=== PATIENT | male | born 1960 | race Caucasian/White ===

== ENCOUNTER 2017-11-27 10:17 | Inpatient (IN) | payer SELFPAY ==
[~2017-11-27] VITALS: Ht 177.8 cm; Wt 106.0 kg
[2017-11-27 10:19] VITALS: BP 163/100; PULSE 89; RESP 16; TEMP 98.6; O2SAT 100
[2017-11-27] MEDS ORDERED: MICA80TA2 PO (13:34)
[2017-11-27 14:00] VITALS: BP 160/91; PULSE 86; RESP 17; O2SAT 98
[2017-11-27 14:06] LABS: AUTOMATED NEUTROPHIL # 5.5 TH/MM3 (1.8-7.7); BASOPHIL # 0.1 TH/MM3 (0-0.2); BASOPHIL % 0.9 % (0.0-2.0); EOSINOPHIL # 0.1 TH/MM3 (0-0.4); EOSINOPHIL % 1.4 % (0.0-4.0); HEMATOCRIT 37.3 % (39.0-51.0); HEMOGLOBIN 12.3 GM/DL (13.0-17.0); LYMPH % 25.2 % (9.0-44.0); LYMPHOCYTE # 2.2 TH/MM3 (1.0-4.8); MEAN CORPUSCULAR HEMOGLOBIN 28.6 PG (27.0-34.0); MEAN CORPUSCULAR HGB CONC 32.9 % (32.0-36.0); MEAN PLATELET VOLUME 8.9 FL (7.0-11.0); MONO % 9.5 % (0.0-8.0); MONOCYTE # 0.8 TH/MM3 (0-0.9); PLATELET COUNT 257 TH/MM3 (150-450); RED BLOOD COUNT 4.28 MIL/MM3 (4.50-5.90); RED CELL DISTRIBUTION WIDTH 18.7 % (11.6-17.2); WHITE BLOOD COUNT 8.8 TH/MM3 (4.0-11.0)
[2017-11-27 14:28] LABS: ALBUMIN 3.8 GM/DL (3.4-5.0); AST (GOT) 82 U/L (15-37); BICARBONATE 26.4 MEQ/L (21.0-32.0); BLOOD UREA NITROGEN 9 MG/DL (7-18); CALCIUM 8.7 MG/DL (8.5-10.1); CHLORIDE 102 MEQ/L (98-107); CREATININE 0.82 MG/DL (0.60-1.30); GLOMERULAR FILTRATION RATE 97 ML/MIN (>89); GLUCOSE,RANDOM 138 MG/DL (74-106); SODIUM (NA) 138 MEQ/L (136-145)
[2017-11-27 14:32] LABS: ALKALINE PHOSPHATASE 85 U/L (45-117); ALT (GPT) 93 U/L (12-78); TOTAL BILIRUBIN ADULT 0.6 MG/DL (0.2-1.0); TOTAL PROTEIN 8.3 GM/DL (6.4-8.2)
[2017-11-27] MEDS ORDERED: IOHEXOL 350 MG/ML 10 ML VIAL (for RAD DIAG) IVCONTRAST ONE (15:03)
--- NOTE | 2017-11-27 15:16 | RADRPT ---
EXAM DATE/TIME: 11/27/2017 14:46 [place] COMPARISON: No previous studies available for comparison. INDICATIONS : Abdomnal pain, with dark blood in stool. IV CONTRAST: 96 cc Omnipaque 350 (iohexol) IV ORAL CONTRAST: No oral contrast ingested. RADIATION DOSE: 8.41 CTDIvol (mGy) MEDICAL HISTORY : Carcinoma, colon. SURGICAL HISTORY : None. ENCOUNTER: Initial ACUITY: 4 - 6 months PAIN SCALE: 7/10 LOCATION: Bilateral lower quadrant TECHNIQUE: Volumetric scanning of the abdomen and pelvis was performed. Using automated exposure control and ad justment of the mA and/or kV according to patient size, radiation dose was kept as low as reasonably achievable to obtain optimal diagnostic quality images. DICOM format image data is available electro nically for review and comparison. FINDINGS: LOWER LUNGS: The visualized lower lungs are clear. LIVER: Patchy mild probable steatosis. No evidence of focal mass or biliary ductal dilatation. SPLEEN: Normal size without lesion. PANCREAS: Within normal limits. KIDNEYS: There is a small midpole posterior right renal cortical cyst. No suspicious renal mass. No stone or h ydronephrosis. ADRENAL GLANDS: Within normal limits. VASCULAR: There is no aortic aneurysm. BOWEL/MESENTERY: There is a rounded enhancing endoluminal process in the distal sigmoid/proximal rectum measuring clos e to 4 cm worrisome for a colonic polyp. There appears to be some degree of mild concentric wall thic kening in this region of the bowel. There are some regional diverticula also noted.. Direct inspectio n of this region would be recommended. There is slight induration in the adjacent paracolic fatty tis sues and a few tiny mesenteric lymph nodes visualized. The bowel is elsewhere focally unremarkable an d nondilated. ABDOMINAL WALL: Within normal limits. RETROPERITONEUM: Tiny retroperitoneal lymph nodes, nonpathologic by CT size criteria. BLADDER: No wall thickening or mass. REPRODUCTIVE: Within normal limits. INGUINAL: There is no lymphadenopathy or hernia. MUSCULOSKELETAL: Within normal limits for patient age. CONCLUSION: Appearance worrisome for endoluminal mass in the distal sigmoid/proximal rectum. Direct inspection of the colon would be suggested. Mild cirrhotic change and steatosis in the liver. Small right renal cysts. Filipe Guevara MD on November 27, 2017 at 15:06 Board Certified Radiologist. This report was verified electronically.
[2017-11-27] MEDS ORDERED: LORazepam 2 MG/ML VIAL IV PUSH PRN ×3 (15:45)
[2017-11-27] MEDS ORDERED: LORazepam 2 MG TAB PO PRN (15:45)
[2017-11-27] MEDS ORDERED: FLUMAZENIL 0.5 MG/5 ML VIAL IV PUSH PRN (15:45)
[2017-11-27] MEDS ORDERED: LORazepam 1 MG TAB PO PRN (15:45)
[2017-11-27] MEDS ORDERED: BISACODYL 10 MG SUPP RECTAL PRN (16:00)
[2017-11-27] MEDS ORDERED: NALOXONE HCL 0.4 MG/ML AMP IV PUSH PRN (16:00)
[2017-11-27] MEDS ORDERED: SODIUM CHLORIDE 0.9% FLUSH 10 ML FLUSH IV FLUSH PRN (16:00)
[2017-11-27] MEDS ORDERED: LACTULOSE SYRUP 20 GM/30 ML CUP PO PRN (16:00)
[2017-11-27] MEDS ORDERED: ONDANSETRON HCL 4 MG/2 ML VIAL IVP PRN (16:00)
[2017-11-27] MEDS ORDERED: SENNOSIDES 8.6 MG TAB PO PRN (16:00)
[2017-11-27] MEDS ORDERED: LACTATED RINGER'S 1000 ML INJ 1,000 ML IV SCH (16:00)
[2017-11-27] MEDS ORDERED: ACETAMINOPHEN 325 MG TAB PO PRN (16:00)
[2017-11-27] MEDS ORDERED: PEG (High)/E-LYTE SOLN 4000 ML BTL PO ONE (16:00)
[2017-11-27] MEDS: SODIUM CHLOR 0.9% 1000 ML INJ 1,000 ML IV SCH (16:31)
--- NOTE | 2017-11-27 16:34 | HHI.HP ---
HPI Service [facility] Primary Care Physician No Primary Care Physician Admission Diagnosis colon tumor Diagnoses: Chief Complaint: Sent by Doctor John Victor for Surgery Travel History International Travel<30 Days: No Contact w/Intl Traveler <30 Da: No Traveled to Known Affected Are: No History of Present Illness This is a pleasant 56 y/o Man with history of GI bleed found to have a rectal Cancer Stage III, recommended for surgery but as per patient he did not have the possibility to perform the surgery due to no Insurance, He knows the situation for one year but from July was recommended the procedure, today due to GI bleed and difficulty to eat consulted to Doctor Valente and was sent for procedure to this facility. was asked to ER physician to place the patient NPO, give GoLYTELY start IV fluids, laboratory reviewed and continue to follow, he states he is a heavy drinker of Beer and sometimes use Hard liquor, at this time stable, has rectal pain. 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-S1 herniation Past Surgical History Left Rotator cuff surgery Left knee surgery x 3 Cholecystectomy Reported Medications Reported Meds & Active Scripts Active Reported Micardis Hct (Telmisartan-Hydrochlorothiazide) 80-12.5 Mg Tab 1 Tab PO DAILY Allergies: Coded Allergies: No Known Allergies (Unverified , 11/27/17) Active Ordered Medications Current Medications Medications (Trade) Dose Ordered Sig/Sharon Route Start Time Stop Time Status Last Admin (Romazicon Inj) 0.2 mg Q1M PRN IV PUSH 11/27/17 15:45 (Ativan) 1 mg Q4H PRN PO 11/27/17 15:45 (Ativan Inj) 1 mg Q4H PRN IV PUSH 11/27/17 15:45 (Ativan) 2 mg Q2H PRN PO 11/27/17 15:45 (Ativan Inj) 2 mg Q2H PRN IV PUSH 11/27/17 15:45 (Ativan Inj) 2 mg Q1H PRN IV PUSH 11/27/17 15:45 (Ativan Inj) 2 mg Q15M PRN IV PUSH 11/27/17 15:45 Sodium Chloride 1,000 ml @ 100 mls/hr Q10H IV 11/27/17 16:00 (NS Flush) 2 ml UNSCH PRN IV FLUSH 11/27/17 16:00 (NS Flush) 2 ml BID IV FLUSH 11/27/17 21:00 (Tylenol) 650 mg Q4H PRN PO 11/27/17 16:00 (Zofran Inj) 4 mg Q6H PRN IVP 11/27/17 16:00 (Narcan Inj) 0.4 mg UNSCH PRN IV PUSH 11/27/17 16:00 (Senokot) 17.2 mg Q12H PRN PO 11/27/17 16:00 (Dulcolax Supp) 10 mg DAILY PRN RECTAL 11/27/17 16:00 (Lactulose Liq) 30 ml DAILY PRN PO 11/27/17 16:00 Family History Father at 52 years old of Cancer but he does not know which one Brother with Cancer he does not know which one. Social History Lives alone and drinks 8 to 10 beer daily also drinks hard liquor Physical Exam Vital Signs Vital Signs Date Time Temp Pulse Resp B/P (MAP) Pulse Ox O2 Delivery O2 Flow Rate FiO2 11/27/17 14:00 86 17 160/91 (114) 98 Room Air 11/27/17 10:19 98.6 89 16 163/100 (121) 100 Physical Exam GENERAL: This is a well-nourished, well-developed patient, in no apparent distress. SKIN: No rashes, ecchymoses or lesions. Cool and dry. HEAD: Atraumatic. Normocephalic. No temporal or scalp tenderness. EYES: Pupils equal round and reactive. Extraocular motions intact. No scleral icterus. No injection or drainage. ENT: Nose without bleeding, purulent drainage or septal hematoma. Throat without erythema, tonsillar hypertrophy or exudate. Uvula midline. Airway patent. NECK: Trachea midline. No JVD or lymphadenopathy. Supple, nontender, no meningeal signs. CARDIOVASCULAR: Regular rate and rhythm without murmurs, gallops, or rubs. RESPIRATORY: Clear to auscultation. Breath sounds equal bilaterally. No wheezes , rales, or rhonchi. GASTROINTESTINAL: Abdomen soft, generalized tenderness. MUSCULOSKELETAL: Extremities without clubbing, cyanosis, or edema. No joint tenderness, effusion, or edema noted. No calf tenderness. Negative Homans sign bilaterally. NEUROLOGICAL: Awake and alert. Cranial nerves II through XII intact. Laboratory Laboratory Tests Test 11/27/17 13:50 White Blood Count 8.8 Red Blood Count 4.28 Hemoglobin 12.3 Hematocrit 37.3 Mean Corpuscular Volume 87.0 Mean Corpuscular Hemoglobin 28.6 Mean Corpuscular Hemoglobin Concent 32.9 Red Cell Distribution Width 18.7 Platelet Count 257 Mean Platelet Volume 8.9 Neutrophils (%) (Auto) 63.0 Lymphocytes (%) (Auto) 25.2 Monocytes (%) (Auto) 9.5 Eosinophils (%) (Auto) 1.4 Basophils (%) (Auto) 0.9 Neutrophils # (Auto) 5.5 Lymphocytes # (Auto) 2.2 Monocytes # (Auto) 0.8 Eosinophils # (Auto) 0.1 Basophils # (Auto) 0.1 CBC Comment DIFF FINAL Differential Comment Blood Urea Nitrogen 9 Creatinine 0.82 Random Glucose 138 Total Protein 8.3 Albumin 3.8 Calcium Level 8.7 Alkaline Phosphatase 85 Aspartate Amino Transf (AST/SGOT) 82 Alanine Aminotransferase (ALT/SGPT) 93 Total Bilirubin 0.6 Sodium Level 138 Potassium Level 4.2 Chloride Level 102 Carbon Dioxide Level 26.4 Anion Gap 10 Estimat Glomerular Filtration Rate 97 Result Diagram: 11/27/17 1350 11/27/17 1350 Imaging Last Impressions Abdomen/Pelvis CT 11/27/17 0000 Signed Impressions: Service Date/Time: Monday, November 27, 2017 14:46 - CONCLUSION: Appearance worrisome for endoluminal mass in the distal sigmoid/proximal rectum. Direct inspection of the colon would be suggested. Mild cirrhotic change and steatosis in the liver. Small right renal cysts. MD Pb Faith VTE Risk Assessment Pb VTE Risk Assessment: Mod/High Risk (score >= 2) VTE Pharm Contraindication: Caprini Risk Assessment Model Point Value = 1 Point Value = 2 Point Value = 3 Point Value = 5 Age 41-60 Minor surgery BMI > 25 kg/m2 Swollen legs Varicose veins or History of unexplained or recurrent spontaneous Oral contraceptives or hormone replacement Sepsis (< 1 month) Serious lung disease, including pneumonia (< 1 month) Abnormal pulmonary function Acute myocardial infarction Congestive heart failure (< 1 month) History of inflammatory bowel disease Medical patient at bed rest Age 61-74 Arthroscopic surgery Major open surgery (> 45 min) Laparoscopic surgery (> 45 min) Malignancy Confined to bed (> 72 hours) Immobilizing plaster cast Central venous access Age >= 75 History of VTE Family history of VTE Factor V Leiden Prothrombin [id number] Lupus anticoagulant Anticardiolipin antibodies Elevated serum homocysteine Heparin-induced thrombocytopenia Other congenital or acquired thrombophilia Stroke (< 1 month) Elective arthroplasty Hip, pelvis, or leg fracture Acute spinal cord injury (< 1 month) Prophylaxis Regimen Total Risk Factor Score Risk Level Prophylaxis Regimen 0-1 Low Early ambulation 2 Moderate Order ONE of the following: *Sequential Compression Device (SCD) *Heparin 5000 units SQ BID 3-4 Higher Order ONE of the following medications: *Heparin 5000 units SQ TID *Enoxaparin/Lovenox 40 mg SQ daily (WT < 150 kg, CrCl > 30 mL/min) *Enoxaparin/Lovenox 30 mg SQ daily (WT < 150 kg, CrCl > 10-29 mL/min) *Enoxaparin/Lovenox 30 mg SQ BID (WT < 150 kg, CrCl > 30 mL/min) AND/OR *Sequential Compression Device (SCD) 5 or more Highest Order ONE of the following medications: *Heparin 5000 units SQ TID (Preferred with Epidurals) *Enoxaparin/Lovenox 40 mg SQ daily (WT < 150 kg, CrCl > 30 mL/min) *Enoxaparin/Lovenox 30 mg SQ daily (WT < 150 kg, CrCl > 10-29 mL/min) *Enoxaparin/Lovenox 30 mg SQ BID (WT < 150 kg, CrCl > 30 mL/min) AND *Sequential Compression Device (SCD) Assessment and Plan Assessment and Plan 1. Stage III rectal cancer for procedure tomorrow, scheduled for surgery tomorrow, Pain medicine. Julia 2. alcohol abuse on CIWA protocol. 3. Hypertension patient not taking medicines re started 4. medical non compliance. talent acquisition program manager follow electrolytes Code Status Full Code Discussed Condition With patient and ER physician Physician Certification 2 Midnight Certification Type: Admission for Inpatient Services Order for Inpatient Services The services are ordered in accordance with Medicare regulations or non- Medicare payer requirements, as applicable. In the case of services not specified as inpatient-only, they are appropriately provided as inpatient services in accordance with the 2-midnight benchmark. Estimated LOS (days): 3 days is the estimated time the patient will need to remain in the hospital, assuming treatment plan goals are met and no additional complications. Post-Hospital Plan: Not yet determined Chava Gonsales MD Nov 27, 2017 16:34
[2017-11-27 16:53] VITALS: BP 157/81; PULSE 87; RESP 18; TEMP 98.7; O2SAT 100
[2017-11-27] MEDS: THIAMINE INJ 100 MG in SODIUM CHLORIDE 0.9% INJ 100 ML IV SCH (17:59)
[2017-11-27] MEDS: MULTIVITAMIN INJ 10 ML, FOLIC ACID INJ 1 MG in SODIUM CHLORID 0.9% 500 ML INJ 500 ML IV SCH (17:59)
[2017-11-27 18:15] LABS: BILIRUBIN, URINE NEG (NEG); BLOOD, URINE NEG (NEG); GLUCOSE,URINE NEG (NEG); KETONE, URINE NEG (NEG); NITRITE,URINE NEG (NEG); PH, URINE 5.5 (5.0-8.5); URINE COLOR YELLOW (YELLW/STRAW); URINE LEUKOCYTE ESTERASE NEG (NEG)
--- NOTE | 2017-11-27 19:19 | PD ---
HPI Chief Complaint: GI Complaint Time Seen by Provider: 15:16 Travel History International Travel<30 days: No Contact w/Intl Traveler<30days: No Traveled to known affect area: No History of Present Illness HPI This is a 56 year old male who presents to the emergency department with several months of increasing lower abdominal pain, constant, moderate severity associated with bloody stools, with no nausea or vomiting. He was told at an outside hospital that he likely has colon cancer. He has been seeing Dr. Victor in clinic. He comes in today because over the past several days his pain has gotten much worse. Dr. Victor sent him to the emergency department for evaluation recommended the patient have CT imaging. PFSH Past Medical History Cancer: Yes (COLON CANCER, NEVER TREATED) Cardiovascular Problems: Yes (HTN) Chemotherapy: No Endocrine: No Gastrointestinal Disorders: Yes (colon cancer) Genitourinary: No Hypertension: Yes Immune Disorder: No Musculoskeletal: Yes Neurologic: No Psychiatric: No Reproductive: No Respiratory: No Radiation Therapy: No Influenza Vaccination: No ?: Not Past Surgical History Abdominal Surgery: Yes (exp abd surgery) Cardiac Surgery: No Thoracic Surgery: No Social History Alcohol Use: Yes (8 drinks daily beer/liquor ) Tobacco Use: No Substance Use: No Allergies-Medications (Allergen,Severity, Reaction): Coded Allergies: No Known Allergies (Unverified , 11/27/17) Reported Meds & Prescriptions Reported Meds & Active Scripts Active Reported Micardis Hct (Telmisartan-Hydrochlorothiazide) 80-12.5 Mg Tab 1 Tab PO DAILY Review of Systems Except as stated in HPI: all other systems reviewed are Neg Physical Exam Narrative GENERAL:Well appearing, no acute distress SKIN: Focused skin assessment warm and dry. HEAD: Atraumatic. Normocephalic. EYES: Pupils equal and round. No injection or drainage. ENT: Moist mucous membranes NECK: Trachea midline. CARDIOVASCULAR: Regular rate and rhythm. No murmur appreciated. RESPIRATORY: Clear to auscultation. Breath sounds equal bilaterally. GASTROINTESTINAL: Abdomen soft, mildly tender to palpation in the lower abdomen with no rebound/guarding MUSCULOSKELETAL: No obvious deformities. NEUROLOGICAL: Awake and alert. No obvious cranial nerve deficits. Moving all extremities. PSYCHIATRIC: Appropriate mood and affect; insight and judgment normal. Data Data Last Documented VS Vital Signs Date Time Temp Pulse Resp B/P (MAP) Pulse Ox O2 Delivery O2 Flow Rate FiO2 11/27/17 14:00 86 17 160/91 (114) 98 Room Air 11/27/17 10:19 98.6 Orders Orders Complete Blood Count With Diff (11/27/17 13:22) Comprehensive Metabolic Panel (11/27/17 13:22) Ct Abd/Pel W Iv Contrast(Rout) (11/27/17 ) ^ Insert Iv (11/27/17 13:22) Iohexol 350 Inj (Omnipaque 350 Inj) (11/27/17 15:03) Peg (High)/E-Lyte Liq (Colyte Liq) (11/27/17 16:00) Lactated Ringer's 1000 Ml Inj (Lr 1000 M (11/27/17 16:00) Alcohol Withdrawal Asmt-Ciwa ONCE (11/27/17 15:37) Flumazenil Inj (Romazicon Inj) (11/27/17 15:45) Lorazepam (Ativan) (11/27/17 15:45) Lorazepam Inj (Ativan Inj) (11/27/17 15:45) Lorazepam (Ativan) (11/27/17 15:45) Lorazepam Inj (Ativan Inj) (11/27/17 15:45) Lorazepam Inj (Ativan Inj) (11/27/17 15:45) Lorazepam Inj (Ativan Inj) (11/27/17 15:45) Admit Order (Ed Use Only) (11/27/17 15:48) Admit To Inpatient (11/27/17 ) Code Status (11/27/17 15:48) Vital Signs (Adult) Q4H (11/27/17 15:48) Activity Oob Ad Joy (11/27/17 15:48) Licensed Psychologist Director / Telemetry .CONTINUOUS (11/27/17 15:48) Intake + Output LISSETTE.QSHIFT (11/27/17 15:48) Notify Dr: Other (11/27/17 15:48) Sodium Chlor 0.9% 1000 Ml Inj (Ns 1000 M (11/27/17 16:00) Sodium Chloride 0.9% Flush (Ns Flush) (11/27/17 16:00) Sodium Chloride 0.9% Flush (Ns Flush) (11/27/17 21:00) Acetaminophen (Tylenol) (11/27/17 16:00) Ondansetron Inj (Zofran Inj) (11/27/17 16:00) Comprehensive Metabolic Panel (11/28/17 06:00) Complete Blood Count With Diff (11/28/17 06:00) Urinalysis - C+S If Indicated (11/27/17 15:48) Case Management Consult (11/27/17 15:48) Scd Bilateral/Knee High LISSETTE.BID (11/27/17 15:48) Naloxone Inj (Narcan Inj) (11/27/17 16:00) Sennosides (Senokot) (11/27/17 16:00) Bisacodyl Supp (Dulcolax Supp) (11/27/17 16:00) Lactulose Liq (Lactulose Liq) (11/27/17 16:00) Inpatient Certification (11/27/17 ) Labs Laboratory Tests Test 11/27/17 13:50 White Blood Count 8.8 TH/MM3 Red Blood Count 4.28 MIL/MM3 Hemoglobin 12.3 GM/DL Hematocrit 37.3 % Mean Corpuscular Volume 87.0 FL Mean Corpuscular Hemoglobin 28.6 PG Mean Corpuscular Hemoglobin Concent 32.9 % Red Cell Distribution Width 18.7 % Platelet Count 257 TH/MM3 Mean Platelet Volume 8.9 FL Neutrophils (%) (Auto) 63.0 % Lymphocytes (%) (Auto) 25.2 % Monocytes (%) (Auto) 9.5 % Eosinophils (%) (Auto) 1.4 % Basophils (%) (Auto) 0.9 % Neutrophils # (Auto) 5.5 TH/MM3 Lymphocytes # (Auto) 2.2 TH/MM3 Monocytes # (Auto) 0.8 TH/MM3 Eosinophils # (Auto) 0.1 TH/MM3 Basophils # (Auto) 0.1 TH/MM3 CBC Comment DIFF FINAL Differential Comment Blood Urea Nitrogen 9 MG/DL Creatinine 0.82 MG/DL Random Glucose 138 MG/DL Total Protein 8.3 GM/DL Albumin 3.8 GM/DL Calcium Level 8.7 MG/DL Alkaline Phosphatase 85 U/L Aspartate Amino Transf (AST/SGOT) 82 U/L Alanine Aminotransferase (ALT/SGPT) 93 U/L Total Bilirubin 0.6 MG/DL Sodium Level 138 MEQ/L Potassium Level 4.2 MEQ/L Chloride Level 102 MEQ/L Carbon Dioxide Level 26.4 MEQ/L Anion Gap 10 MEQ/L Estimat Glomerular Filtration Rate 97 ML/MIN MDM Medical Decision Making Medical Screen Exam Complete: Yes Emergency Medical Condition: Yes Interpretation(s) No leukocytosis Electrolytes are reassuring Mild transaminitis Urinalysis was negative for infection CT abdomen pelvis demonstrates an appearance worrisome for endoluminal mass in the distal sigmoid proximal rectum Differential Diagnosis Small bowel obstruction, colon cancer, perforation, abscess Narrative Course This was a 56-year-old male who has a history of suspected colon cancer who presents to the emergency department with worsening pain. CT imaging demonstrates an endoluminal mass in the sigmoid colon. I spoke to Dr. Victor who knows the patient. He recommended the patient be admitted for surgical intervention tomorrow. Patient does drink 8-10 beers a day. He was placed on C1 protocol Physician Communication Physician Communication Discussed with Dr. Victor Diagnosis Primary Impression: Colonic mass Admitting Information Admitting Physician Requests: Admit Krystal Noel MD Nov 27, 2017 19:19
[2017-11-27 19:55] VITALS: BP 157/97; PULSE 81; RESP 16; TEMP 98.1; O2SAT 100
--- NOTE | 2017-11-27 20:19 | MB ---
cc: LUDWIN FAN MD DATE OF CONSULTATION 11/27/2017 REASON FOR CONSULTATION Increased abdominal pain with distal sigmoid mass. HISTORY OF PRESENT ILLNESS The patient is a 56-year-old male who had diagnosis in early August of last year with adenocarcinoma of the distal sigmoid colon. [place] the area recently. The patient developed abdominal pain, GI bleeding and contacted the undersigned who recommended that he come directly to the hospital. The patient had workup today which demonstrates normal WBCs, hemoglobin of 12.3, platelets 257,000. CT scan was performed to rule out any metastatic disease prior to proceeding and this demonstrates no lesions in the liver. The patient has a single 3.38 cm lesion in the distal sigmoid. There are some small lymph nodes around this but did not appear enlarged. He presents due to these findings. REVIEW OF SYSTEMS Significant for abdominal pain and bloody stools. Otherwise, review of systems are negative. PAST SURGICAL HISTORY 1. Hypertension, 2. Chronic lumbar pain secondary to L4-5 disk herniation and bulging PAST SURGICAL HISTORY 1. Left rotator cuff surgery 2. Left knee surgery x3 3. Cholecystectomy. MEDICATIONS Currently taking includes Micardis HCT 80/12.5 q. day. ALLERGIES NO KNOWN DRUG ALLERGIES SOCIAL HISTORY Significant for 8-10 beers per day Drinking. PHYSICAL EXAMINATION GENERAL: An obese male in no acute distress. VITAL SIGNS: BP 157/81, pulse 87, respirations 18, temperature 98.7. HEENT: Sclerae anicteric. Pupils reactive. CHEST: Clear to auscultation. CARDIAC: Regular rate and rhythm without murmurs. ABDOMEN: Soft without masses. Pulses are present. NEUROLOGIC: Exam is nonfocal. LABORATORY DATA As indicated above. IMAGING STUDIES CT scan findings are as noted as well. Reports demonstrates a 4 cm mass in the distal sigmoid proximal rectum. ASSESSMENT Distal sigmoid adenocarcinoma. I have discussed with the patient need for resection and we will have him undergo resection with possible reanastomosis. I have discussed with the patient risks of surgery including but not limited to bleeding, infection, leakage of the anastomosis and possible need for proximal diversion. I have also discussed remedies, consequences, alternatives and convalescence; the patient will undergo bowel prep tonight and undergo surgery tomorrow for removal of his malignancy. MD ANA Leonardo/ /7:41 PM /7:55 PM MTDD
[2017-11-27] MEDS: SODIUM CHLORIDE 0.9% FLUSH 10 ML FLUSH IV FLUSH SCH (21:00)
[2017-11-28] VITALS (11 sets, daily range): BP systolic 130–159; BP diastolic 80–97; PULSE 68–91; RESP 10–16; TEMP 97.6–98.6; O2SAT 97–100
[2017-11-28] MEDS: SODIUM CHLOR 0.9% 1000 ML INJ 1,000 ML IV SCH ×3 (01:41→21:57)
[2017-11-28] MEDS ORDERED: SODIUM CHLORID 0.9% 500 ML IV PRN (04:30)
[2017-11-28] MEDS ORDERED: POVIDONE IODINE 5% (ANTISEPSIS KIT) 4 APPLICATIONS EACH NARE PRN (04:30)
[2017-11-28] MEDS ORDERED: CHLORHEXIDINE GLUCONATE 2 % 1 PACK (2 CLOTHS) TOPICAL PRN (04:30)
[2017-11-28] MEDS ORDERED: LACTATED RINGER'S 1000 ML IV PRN (04:30)
[2017-11-28] MEDS: SODIUM CHLORIDE 0.9% FLUSH 10 ML FLUSH IV FLUSH SCH ×2 (08:22→21:00)
[2017-11-28] MEDS: LOSARTAN 50 MG TAB PO SCH (08:25)
[2017-11-28] MEDS: HYDROCHLOROTHIAZIDE 12.5 MG CAP PO SCH (08:25)
[2017-11-28 08:59] LABS: INTERNATIONAL NORMALIZED RATIO 1.2 RATIO; PROTHROMBIN TIME - PATIENT 11.7 SEC (9.8-11.6)
[2017-11-28 09:14] LABS: AUTOMATED NEUTROPHIL # 3.4 TH/MM3 (1.8-7.7); BASOPHIL % 0.7 % (0.0-2.0); EOSINOPHIL # 0.1 TH/MM3 (0-0.4); EOSINOPHIL % 1.4 % (0.0-4.0); HEMATOCRIT 32.4 % (39.0-51.0); HEMOGLOBIN 10.7 GM/DL (13.0-17.0); LYMPH % 27.5 % (9.0-44.0); LYMPHOCYTE # 1.6 TH/MM3 (1.0-4.8); MEAN CELL VOLUME 85.2 FL (80.0-100.0); MEAN CORPUSCULAR HEMOGLOBIN 28.1 PG (27.0-34.0); MEAN PLATELET VOLUME 9.6 FL (7.0-11.0); MONO % 11.6 % (0.0-8.0); MONOCYTE # 0.7 TH/MM3 (0-0.9); NEUT % 58.8 % (16.0-70.0); PLATELET COUNT 190 TH/MM3 (150-450); RED CELL DISTRIBUTION WIDTH 18.2 % (11.6-17.2); WHITE BLOOD COUNT 5.7 TH/MM3 (4.0-11.0)
[2017-11-28 09:22] LABS: ALBUMIN 3.3 GM/DL (3.4-5.0); ALKALINE PHOSPHATASE 71 U/L (45-117); ALT (GPT) 64 U/L (12-78); AST (GOT) 43 U/L (15-37); BICARBONATE 26.9 MEQ/L (21.0-32.0); BLOOD UREA NITROGEN 7 MG/DL (7-18); CALCIUM 7.6 MG/DL (8.5-10.1); CHLORIDE 103 MEQ/L (98-107); CREATININE 0.67 MG/DL (0.60-1.30); GLOMERULAR FILTRATION RATE 122 ML/MIN (>89); GLUCOSE,RANDOM 89 MG/DL (74-106); SODIUM (NA) 138 MEQ/L (136-145); TOTAL BILIRUBIN ADULT 0.9 MG/DL (0.2-1.0)
--- NOTE | 2017-11-28 09:39 | EKG ---
Date Performed: 11/28/2017 Time Performed: 03:50:26 PTAGE: 56 years EKG: Sinus rhythm Lead(s) unsuitable for analysis: V2 Normal ECG based on available leads NO PREVIOUS TRACING DOCTOR: Noe Infante Interpretating Date/Time 11/28/2017 09:37:45
[2017-11-28] MEDS ORDERED: BUPIVACAINE/EPINEPHRINE 0.25% 50 ML VIAL ONE (10:06)
[2017-11-28] MEDS ORDERED: HYDROmorphone HCL PF 2 MG/ML VIAL ONE (10:18)
[2017-11-28] MEDS ORDERED: SODIUM CHLOR 0.9% 1000 ML INJ 1,000 ML IV ONE (10:30)
[2017-11-28] MEDS ORDERED: ALVIMOPAN 12 MG CAPSULE PO ONE (10:30)
[2017-11-28] MEDS ORDERED: metroNIDAZOLE 500 MG INJ 100 ML IV ONE (11:32)
[2017-11-28] MEDS ORDERED: ceFAZolin 2 GM PREMIX 50 ML IV ONE (13:07)
--- NOTE | 2017-11-28 14:48 | HHI.PR ---
cc: John Victor MD Immediate Post Op Note Procedure Date: Nov 28, 2017 Pre Op Diagnosis: Adenocarcinoma distal sigmoid colon Post Op Diagnosis: Same Surgeon: John Victor Lye Machine Operator(s): Praneeth Patton MD Procedure: Laparoscopic assisted takedown splenic flexure of the colon Sigmoid colon resection with low anterior resection Findings: Cirrhosis of the liver Complications: None Specimen(s) removed: Distal sigmoid colon and proximal rectum to pathology Estimated blood loss: 350 ml Anesthesia: General Drains: None IVF (3200 ml) Patient to: PACU Patient Condition: Good Date/Time of Procedure: SEE SURGICAL CARE RECORD Jhon Victor MD Nov 28, 2017 14:48
[2017-11-28] MEDS ORDERED: DO NOT ADM ANY ANTICOAGULANT DRUGS PRN (14:50)
[2017-11-28] MEDS ORDERED: ACETAMINOPHEN/HYDROcodone 325 MG/5 MG TAB PO PRN (15:00)
[2017-11-28] MEDS ORDERED: MIDAZOLAM HCL 2 MG/2 ML VIAL ONE (15:02)
[2017-11-28] MEDS ORDERED: MORPHINE SULFATE 30 MG/30 ML PCA ONE (15:21)
[2017-11-28] MEDS ORDERED: SODIUM CHLORIDE 0.9% FLUSH 10 ML FLUSH IV FLUSH PRN (15:30)
[2017-11-28] MEDS ORDERED: POTASSIUM CHLOR 20 MEQ PREMIX 100 ML IV PRN (15:30)
[2017-11-28] MEDS: D5-NS + KCL 20 MEQ INJ 1,000 ML IV SCH ×2 (15:30→23:01)
[2017-11-28] MEDS ORDERED: POTASSIUM CHLOR 40 MEQ PREMIX 100 ML IV PRN (15:30)
[2017-11-28] MEDS ORDERED: ONDANSETRON HCL 4 MG/2 ML VIAL IV PUSH PRN (15:30)
[2017-11-28] MEDS ORDERED: BENZOCAINE 6 MG/MENTHOL 10 MG LOZENGE BUCCAL PRN (15:30)
[2017-11-28] MEDS ORDERED: Post-op Orders (for Pharmacy) XX ONE (16:00)
[2017-11-28] MEDS ORDERED: KETOROLAC TROMETHAMINE 30 MG/ML (IVP) VIAL IVP PRN (16:00)
[2017-11-28] MEDS: MORPHINE SULFATE 30 MG/30 ML PCA IV SCH (16:02)
[2017-11-28] MEDS: MULTIVITAMIN INJ 10 ML, FOLIC ACID INJ 1 MG in SODIUM CHLORID 0.9% 500 ML INJ 500 ML IV SCH (17:43)
[2017-11-28] MEDS: THIAMINE INJ 100 MG in SODIUM CHLORIDE 0.9% INJ 100 ML IV SCH (17:43)
--- NOTE | 2017-11-28 17:48 | HHI.PR ---
Subjective Remarks sp tumor resection Denies cp/sob. Afebrile Has some pain over surgical site. States cha catheter is bothering him. Objective Vitals Vital Signs Date Time Temp Pulse Resp B/P (MAP) Pulse Ox O2 Delivery O2 Flow Rate FiO2 11/28/17 17:00 99 14 123/82 (96) 99 Nasal Cannula 2 11/28/17 16:02 14 11/28/17 16:00 98.1 103 14 107/75 (86) 99 Nasal Cannula 2 11/28/17 15:45 101 14 121/80 (94) 99 Nasal Cannula 2 11/28/17 15:30 106 14 146/91 (109) 99 Nasal Cannula 2 11/28/17 15:15 110 14 175/99 (124) 97 Nasal Cannula 2 11/28/17 15:00 87 14 153/89 (110) 97 Nasal Cannula 4 11/28/17 14:50 97.9 118 14 167/97 (120) 92 Nasal Cannula 4 11/28/17 08:03 98.6 77 16 138/88 (105) 97 11/28/17 08:00 Room Air 11/28/17 04:10 68 11/28/17 04:00 Room Air 11/28/17 04:00 98.5 83 16 159/95 (116) 98 11/28/17 00:22 82 11/28/17 00:00 Room Air 11/28/17 00:00 97.6 74 16 155/97 (116) 99 11/27/17 21:00 Room Air 11/27/17 19:55 98.1 81 16 157/97 (117) 100 I/O 11/27/17 11/27/17 11/27/17 11/28/17 11/28/17 11/28/17 07:00 15:00 23:00 07:00 15:00 23:00 Intake Total 3310 ml 3200 ml Output Total 750 ml 500 ml Balance 3310 ml 2450 ml -500 ml Intake Oral 2800 ml IV Total 510 ml Other 3200 ml Output Urine Total 400 ml 500 ml Estimated Blood Loss 350 ml # Voids 5 # Bowel Movements 10 Result Diagram: 11/28/17 0833 11/28/17 0833 Imaging Last Impressions Abdomen/Pelvis CT 11/27/17 0000 Signed Impressions: Service Date/Time: Monday, November 27, 2017 14:46 - CONCLUSION: Appearance worrisome for endoluminal mass in the distal sigmoid/proximal rectum. Direct inspection of the colon would be suggested. Mild cirrhotic change and steatosis in the liver. Small right renal cysts. Filipe Guevara MD Objective Remarks GENERAL: Lying in bed, nad SKIN: Warm and dry. HEAD: Normocephalic. EYES: No scleral icterus. No injection or drainage. NECK: Supple, trachea midline. No JVD or lymphadenopathy. CARDIOVASCULAR: Regular rate and rhythm without murmurs, gallops, or rubs. RESPIRATORY: Breath sounds equal bilaterally. No accessory muscle use. GASTROINTESTINAL: Abdomen is soft, mildly distended, Bowel sounds not audible. MUSCULOSKELETAL: No cyanosis, or edema. BACK: Nontender without obvious deformity. No CVA tenderness. Procedures Laparoscopic assisted takedown splenic flexure of the colon Sigmoid colon resection with low anterior resection Medications and IVs Current Medications Medications (Trade) Dose Ordered Sig/Sharon Route Start Time Stop Time Status Last Admin (Romazicon Inj) 0.2 mg Q1M PRN IV PUSH 11/27/17 15:45 (Ativan) 1 mg Q4H PRN PO 11/27/17 15:45 (Ativan Inj) 1 mg Q4H PRN IV PUSH 11/27/17 15:45 (Ativan) 2 mg Q2H PRN PO 11/27/17 15:45 (Ativan Inj) 2 mg Q2H PRN IV PUSH 11/27/17 15:45 (Ativan Inj) 2 mg Q1H PRN IV PUSH 11/27/17 15:45 (Ativan Inj) 2 mg Q15M PRN IV PUSH 11/27/17 15:45 Sodium Chloride 1,000 ml @ 100 mls/hr Q10H IV 11/27/17 16:00 11/28/17 01:41 (Tylenol) 650 mg Q4H PRN PO 11/27/17 16:00 (Narcan Inj) 0.4 mg UNSCH PRN IV PUSH 11/27/17 16:00 (Senokot) 17.2 mg Q12H PRN PO 11/27/17 16:00 (Dulcolax Supp) 10 mg DAILY PRN RECTAL 11/27/17 16:00 (Lactulose Liq) 30 ml DAILY PRN PO 11/27/17 16:00 (Cozaar) 100 mg DAILY PO 11/28/17 09:00 11/28/17 08:25 Multivitamins 10 ml/Folic Acid 1 mg/Sodium Chloride 510.2 ml @ 125 mls/hr Q24H IV 11/27/17 18:00 12/02/17 17:59 11/28/17 17:43 Thiamine HCl 100 mg/Sodium Chloride 101 ml @ 100 mls/hr Q24H IV 11/27/17 18:00 11/30/17 17:59 11/28/17 17:43 (Vitamin B1) 100 mg DAILY PO 12/01/17 09:00 (Microzide) 12.5 mg DAILY PO 11/28/17 09:00 11/28/17 08:25 Lactated Ringer's 1,000 ml @ 30 mls/hr Q24H PRN IV 11/28/17 04:30 12/01/17 04:29 11/28/17 09:50 Sodium Chloride 500 ml @ 30 mls/hr [id number] PRN IV 11/28/17 04:30 12/01/17 04:29 11/28/17 10:25 (Betadine 5% Antisepsis Kit) 1 applic COMMERCIAL REAL ESTATE ASSISTANT PRN EACH NARE 11/28/17 04:30 12/01/17 04:29 (Chlorhexidine 2% Cloth) 3 pack COMMERCIAL REAL ESTATE ASSISTANT PRN TOPICAL 11/28/17 04:30 12/01/17 04:29 (Entereg) 12 mg BID PO 11/29/17 21:00 12/06/17 09:01 Potassium Chloride/Dextrose/ Sod Cl 1,000 ml @ 125 mls/hr Q8H IV 11/28/17 15:30 11/28/17 15:30 (NS Flush) 2 ml UNSCH PRN IV FLUSH 11/28/17 15:30 (NS Flush) 2 ml BID IV FLUSH 11/28/17 21:00 Cefazolin Sodium/ Dextrose 50 ml @ 100 mls/hr Q8H IV 11/28/17 20:00 11/29/17 12:29 Metronidazole 100 ml @ 200 mls/hr Q8H IV 11/28/17 20:00 11/29/17 12:29 (Elsmore 5-325 Mg) 1 tab Q4H PRN PO 11/28/17 15:00 (Elsmore 5-325 Mg) 2 tab Q4H PRN PO 11/28/17 15:00 (Toradol Inj) 30 mg Q6H PRN IVP 11/28/17 16:00 12/01/17 15:59 (Protonix) 40 mg DAILY PO 11/29/17 09:00 (Zofran Inj) 4 mg Q6H PRN IV PUSH 11/28/17 15:30 (Vasotec Inj) 1.25 mg Q4H PRN IV PUSH 11/28/17 15:30 (Chloraseptic Davina) 1 lozenge UNSCH PRN BUCCAL 11/28/17 15:30 Potassium Chloride 100 ml @ 50 mls/hr UNSCH PRN IV 11/28/17 15:30 Potassium Chloride 100 ml @ 25 mls/hr UNSCH PRN IV 11/28/17 15:30 (Lovenox Inj) 40 mg Q24H SQ 11/29/17 14:00 (Morphine 1 Mg/ ml DUST PULLER) 30 mg UNSCH IV 11/28/17 15:30 11/28/17 16:02 DUST PULLER Dosage Infused (Pha) 1 Q8HR .XX 11/28/17 22:00 Miscellaneous Information ALL NURSING DEPARTME... UNSCH PRN .XX 11/28/17 14:50 11/29/17 14:49 A/P Problem List: (1) Colonic mass ICD Code: K63.9 - Disease of intestine, unspecified Status: Resolved (2) HTN (hypertension) ICD Code: I10 - Essential (primary) hypertension Status: Chronic (3) Anemia ICD Code: D64.9 - Anemia, unspecified Status: Acute Plan: Hemoglobin on admission 12.3, down to 10.7 and likely dilutional after IV fluids. Continue to monitor hemoglobin. We'll check iron studies. Assessment and Plan 1. Stage III rectal cancer 2. alcohol abuse on CIWA protocol. 3. Hypertension patient not taking medicines re started 4. medical non compliance. - The patient is status post sigmoid, colectomy. Pain control as per general surgery. - No evidence of alcohol withdrawal. Continue CIWA protocol. - Blood pressure seems to be stable. Continue current antihypertensive medications, the patient currently on losartan. Discharge Planning Continue to monitor in the intensive care unit. Problem Qualifiers (1) HTN (hypertension): Qualified Codes: I10 - Essential (primary) hypertension (2) Anemia: Qualified Codes: D64.9 - Anemia, unspecified Benja Murillo MD Nov 28, 2017 17:48
[2017-11-28] MEDS: LORazepam 2 MG/ML VIAL IV PUSH PRN (19:12)
[2017-11-28] MEDS: ceFAZolin 2 GM PREMIX 50 ML IV SCH (20:00)
[2017-11-28] MEDS: metroNIDAZOLE 500 MG INJ 100 ML IV SCH (20:23)
[2017-11-28] MEDS: PCA - TOTAL MG MORPHINE DELIVERED PER SHIFT SCH (22:00)
[2017-11-29] VITALS (16 sets, daily range): BP systolic 124–151; BP diastolic 64–83; PULSE 72–109; RESP 7–24; TEMP 98.2–100.7; O2SAT 92–100
[2017-11-29] MEDS: metroNIDAZOLE 500 MG INJ 100 ML IV SCH ×2 (03:02→14:31)
[2017-11-29] MEDS: ceFAZolin 2 GM PREMIX 50 ML IV SCH ×2 (04:35→14:30)
[2017-11-29 05:53] LABS: AUTOMATED NEUTROPHIL # 8.8 TH/MM3 (1.8-7.7); BASOPHIL % 0.2 % (0.0-2.0); HEMATOCRIT 21.6 % (39.0-51.0); HEMOGLOBIN 7.1 GM/DL (13.0-17.0); LYMPH % 16.1 % (9.0-44.0); LYMPHOCYTE # 1.9 TH/MM3 (1.0-4.8); MEAN CELL VOLUME 86.3 FL (80.0-100.0); MEAN CORPUSCULAR HEMOGLOBIN 28.6 PG (27.0-34.0); MEAN CORPUSCULAR HGB CONC 33.1 % (32.0-36.0); MEAN PLATELET VOLUME 9.8 FL (7.0-11.0); MONO % 10.2 % (0.0-8.0); MONOCYTE # 1.2 TH/MM3 (0-0.9); NEUT % 73.5 % (16.0-70.0); PLATELET COUNT 209 TH/MM3 (150-450); RED CELL DISTRIBUTION WIDTH 17.8 % (11.6-17.2); WHITE BLOOD COUNT 11.9 TH/MM3 (4.0-11.0)
[2017-11-29] MEDS: PCA - TOTAL MG MORPHINE DELIVERED PER SHIFT SCH ×2 (06:00→22:36)
[2017-11-29 06:25] LABS: ALBUMIN 2.7 GM/DL (3.4-5.0); BICARBONATE 25.8 MEQ/L (21.0-32.0); CALCIUM-PROTEIN CORRECTED 7.6 MG/DL (8.5-10.1); CREATININE 0.8 MG/DL (0.60-1.30); MAGNESIUM 1.6 MG/DL (1.5-2.5); PHOSPHORUS 2.3 MG/DL (2.5-4.9); TOTAL BILIRUBIN ADULT 0.5 MG/DL (0.2-1.0)
[2017-11-29] MEDS: D5-NS + KCL 20 MEQ INJ 1,000 ML IV SCH ×2 (06:33→19:43)
[2017-11-29] MEDS: SODIUM CHLOR 0.9% 1000 ML INJ 1,000 ML IV SCH (06:33)
--- NOTE | 2017-11-29 08:10 | HHI.PR ---
Subjective Remarks Pt is s/p Laparoscopic assisted takedown splenic flexure of the colon/Sigmoid colon resection with low anterior resection POD#1. Pt complaining of pain 10/ 10. 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 Wants to get up. Admits to nausea but no vomiting. States binder makes it harder to breath at times. admits to some lightheadedness. No flatus Per RN, night RN noted some bleeding at incision site Objective Vitals Vital Signs Date Time Temp Pulse Resp B/P (MAP) Pulse Ox O2 Delivery O2 Flow Rate FiO2 11/29/17 06:00 16 11/29/17 06:00 72 11/29/17 04:00 90 11/29/17 04:00 98.9 90 12 135/73 (93) 100 11/29/17 02:00 86 11/29/17 00:00 98.2 91 12 143/83 (103) 98 11/29/17 00:00 90 11/28/17 22:00 84 11/28/17 22:00 20 11/28/17 20:00 98.6 91 10 156/86 (109) 100 11/28/17 20:00 91 11/28/17 19:50 100 Nasal Cannula 4.00 11/28/17 19:00 100 Nasal Cannula 4.00 11/28/17 18:00 88 11/28/17 17:59 98.2 88 10 130/80 (97) 98 11/28/17 17:57 88 11/28/17 17:00 99 14 123/82 (96) 99 Nasal Cannula 2 11/28/17 16:02 14 11/28/17 16:00 98.1 103 14 107/75 (86) 99 Nasal Cannula 2 11/28/17 15:45 101 14 121/80 (94) 99 Nasal Cannula 2 11/28/17 15:30 106 14 146/91 (109) 99 Nasal Cannula 2 11/28/17 15:15 110 14 175/99 (124) 97 Nasal Cannula 2 11/28/17 15:00 87 14 153/89 (110) 97 Nasal Cannula 4 11/28/17 14:50 97.9 118 14 167/97 (120) 92 Nasal Cannula 4 I/O 11/28/17 11/28/17 11/28/17 11/29/17 11/29/17 11/29/17 07:00 15:00 23:00 07:00 15:00 23:00 Intake Total 3310 ml 3200 ml 1761.2 ml 1100 ml Output Total 750 ml 500 ml 1300 ml Balance 3310 ml 2450 ml 1261.2 ml -200 ml Intake Oral 2800 ml IV Total 510 ml 1761.2 ml 1100 ml Other 3200 ml Output Urine Total 400 ml 500 ml 1300 ml Estimated Blood Loss 350 ml # Voids 5 # Bowel Movements 10 0 0 Result Diagram: 11/29/17 0455 11/29/17 0455 Imaging Last Impressions Abdomen/Pelvis CT 11/27/17 0000 Signed Impressions: Service Date/Time: Monday, November 27, 2017 14:46 - CONCLUSION: Appearance worrisome for endoluminal mass in the distal sigmoid/proximal rectum. Direct inspection of the colon would be suggested. Mild cirrhotic change and steatosis in the liver. Small right renal cysts. Filipe Guevara MD Objective Remarks GENERAL: Lying in bed, dry lips SKIN: Warm and dry. HEAD: Normocephalic. EYES: No scleral icterus. No injection or drainage. NECK: trachea midline. CARDIOVASCULAR: Regular rate and rhythm without murmurs RESPIRATORY: Breath sounds equal bilaterally but decreased, no wheezing or use of accessory muscles GASTROINTESTINAL: Abdomen distended, dressing over incisions noted, no active bleeding. Bowel sounds not audible. appropriately tender to palpation. MUSCULOSKELETAL: No edema. moves extremities Procedures Laparoscopic assisted takedown splenic flexure of the colon Sigmoid colon resection with low anterior resection A/P Problem List: (1) Colonic mass ICD Code: K63.9 - Disease of intestine, unspecified Status: Resolved (2) HTN (hypertension) ICD Code: I10 - Essential (primary) hypertension Status: Chronic (3) Anemia ICD Code: D64.9 - Anemia, unspecified Status: Acute Assessment and Plan 1. Stage III rectal cancer 2. Post op anemia. Hb dropped to 7.1 3. alcohol abuse on CIWA protocol. 4. Hypertension patient not taking medicines re started 5. medical non compliance. - The patient is status post Laparoscopic assisted takedown splenic flexure of the colon/Sigmoid colon resection with low anterior resection POD#1. Pain control as per general surgery. Pt would like to get out of bed and encouraged him to do so. Will consult PT for assistance and recs. IS q1hr while awake as pt is in fair amount of pain. Diet per GS. - Hb dropped to 7.1. Pt is post op. No active bleeding noted however will recheck Hb now and if less than 7, will transfuse one unit. Will place one unit of PRBC on hold for now. - No evidence of alcohol withdrawal. Continue CIWA protocol. - Blood pressure seems to be stable. Continue current antihypertensive medications, the patient currently on losartan. Discharge Planning Continue to monitor in the ICU for now. f/u on Hb and transfuse if Hb<7. fall and sz precautions in placed Pt on CIWA protocol Problem Qualifiers (1) HTN (hypertension): Qualified Codes: I10 - Essential (primary) hypertension (2) Anemia: Qualified Codes: D64.9 - Anemia, unspecified Jessica Barajas MD Nov 29, 2017 08:10
[2017-11-29] MEDS ORDERED: FUROSEMIDE 20 MG/2 ML VIAL IV PUSH ONE (08:15)
[2017-11-29] MEDS ORDERED: diphenhydrAMINE HCL 25 MG CAP PO PRN (08:30)
[2017-11-29] MEDS ORDERED: ACETAMINOPHEN 325 MG TAB PO PRN (08:30)
[2017-11-29] MEDS ORDERED: SODIUM CHLOR 0.9% 250 ML INJ 250 ML IV ONE (08:30)
[2017-11-29] MEDS: PANTOPRAZOLE SOD 40 MG DELAYED RELEASE TAB PO SCH (08:34)
[2017-11-29] MEDS: SODIUM CHLORIDE 0.9% FLUSH 10 ML FLUSH IV FLUSH SCH ×2 (08:34→19:44)
[2017-11-29] MEDS: CALCIUM CARBONATE 500 MG CHEWABLE TAB CHEW SCH ×3 (08:42→20:33)
[2017-11-29] MEDS: LOSARTAN 50 MG TAB PO SCH (09:00)
[2017-11-29] MEDS: HYDROCHLOROTHIAZIDE 12.5 MG CAP PO SCH (09:00)
[2017-11-29 09:29] LABS: HEMOGLOBIN 6.9 GM/DL (13.0-17.0)
[2017-11-29 09:30] LABS: HEMATOCRIT 20.8 % (39.0-51.0)
--- NOTE | 2017-11-29 11:19 | MP ---
cc: LUDWIN VICTOR M.D., JOHN M. M.D. 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 PROCEDURE 1. Laparoscopic-assisted takedown of splenic flexure of the colon. 2. Distal sigmoid colon resection with low anterior resection. 3. Rigid proctoscopy, by Dr. Patton. Please see his dictation for this portion of the procedure. ANESTHESIA General endotracheal. SURGEON Dr. Victor. EXECUTIVE ASST Praneeth Patton MD ESTIMATED BLOOD LOSS 350 mL. FLUIDS 3200 mL crystalloid. COMPLICATIONS None. DRAINS None. SPECIMEN Sigmoid colon to pathology. FINDINGS Cirrhosis of the liver; no evidence of gross disease beyond the colon, although some lymph nodes somewhat suspicious for tumor in the sigmoid mesentery. PROCEDURE IN DETAIL The patient was taken to the operating room and placed on the operating table in the supine position. After an adequate level of general endotracheal anesthesia was achieved, the patient was placed in lithotomy with Yellofins. The abdomen and perirectal region were prepped and draped. Time-out was taken confirming the correct patient, site, and procedure to be performed. A small incision was made inferior to the umbilicus and a 5-mm trocar inserted under direct vision. The abdomen was insufflated. A second 5 mm trocar was placed in the upper midline and entered the abdominal cavity under direct vision uneventfully as well. A third 5 mm trocar was placed in the left upper quadrant of the abdomen entering uneventfully. The colon was then manipulated medially and was mobilized along the line of Toldt with the harmonic scalpel. A fourth 5-mm trocar was placed inferior to the infraumbilical trocar site to allow for better manipulation of the bowel. This allowed for traction of the omentum downward so that the splenic flexure could be mobilized. This was mobilized utilizing the harmonic scalpel. Care was taken to completely mobilize the splenic flexure. No bleeding was noted from the spleen, nor the omentum that had been mobilized. Dissection was carried back across to the mid transverse colon and completely freed up to allow for easier mobilization and to improve apposition of the distal sigmoid colon to the rectal stump when the time came. When this was completed, the lateral pelvic sidewall had sigmoid colon mobilized from it utilizing the harmonic scalpel. Insufflation was then discontinued and the ports removed. An infraumbilical midline incision was made and carried through the fascia sharply. The peritoneal cavity was entered uneventfully. A wound protector was inserted and Bookwalter retractor then inserted as well. The sigmoid colon was taken down completely from the lateral pelvic sidewall and completely mobilized. Approximately 8-10 cm proximal to the lesion that could easily be felt in the pelvis, the colon was divided with a stapling device. The lesion appeared to be adhered to the peritoneum on the bladder wall and this was taken down with electrocautery. Following this the left ureter was identified and kept free from the area of dissection. The colon was then dissected down including the sigmoid vessels, down toward the pelvis. A substantial portion of mesentery was removed with the distal sigmoid colon and dissection was carried down to a level below the lesion. At least 5 cm distal to the lesion grossly was chosen and dissection was carried on across this area of the colon. The blood vessels were taken down from the midline and at this point a contour stapler was brought in and fired below the tumor toward the rectal stump. The tumor was removed and the distal margin marked with a silk suture. This was sent for pathologic analysis which returned as negative margin. At this point the rectal stump was freed up further utilizing the harmonic scalpel so that free tissue was available. When this was completed, the distal sigmoid stump was opened with the staple line completely excised. A 25 and 29 sizer were then inserted and the EEA 29 was selected for this patient. The 29 anvil was inserted after firing the pursestring suture device across the distal colon. The colon was cinched down around the anvil and this was toweled away. The rectal stump was further dissected away so that the staple line was exposed and appeared viable. When this had been completed, Dr. Patton went below and performed rigid proctoscopy. Please see his dictation for this portion of the procedure. The staple line on the rectal stump was seen to be intact and waterproof. No bubbles were noted during distension of the rectal stump by Dr. Patton under pressure. At this point, irrigation was aspirated and the EEA stapler was placed in through the rectum. The stapler was landed such that the spike came out just distal/inferior to the staple line in the rectal stump. The anvil was attached to the spike and the stapler was cinched down. The stapler was fired and the stapler then removed from the rectum. Two complete tissue doughnuts were removed from the stapling device. At this point, Dr. Patton reinserted the proctoscope and while undersigned occluded the colon proximal to this, the colon was insufflated. Under pressure, no air bubbles were noted and no leaks. Irrigation was aspirated and the anastomosis was seen to be intact and hemostatic without any bleeding. At this point, the mesenteric defect was closed with multiple 3-0 Silk sutures in a [id number] fashion. The abdomen was then irrigated and the fascia closed with a running looped #1 PDS suture. The skin was closed with mulu. The two remaining trocar sites were closed with mulu as well. The wounds were dressed with sterile dressings and the patient then extubated and taken back to the recovery room in stable condition. Sponge, needle and instrument counts were reported to be correct x2. The patient tolerated the procedure well. MD ANA Leonardo/TLJuan Ramon /4:25 PM /10:48 AM BRIONNA
[2017-11-29] MEDS ORDERED: ENOXAPARIN SODIUM 40 MG/0.4 ML SYRINGE SQ SCH (14:00)
[2017-11-29] MEDS ORDERED: PHENOL 1.4% SOLN 180 ML BTL OROPHARYNG PRN (15:00)
[2017-11-29] MEDS ORDERED: MORPHINE SULFATE 8 MG/ML INJ IV PUSH ONE (15:00)
--- NOTE | 2017-11-29 16:28 | HHI.PR ---
Subjective Subjective Notes Pain when moving around Likes the clear liquids Objective Vitals/I&O Vital Signs Date Time Temp Pulse Resp B/P (MAP) Pulse Ox O2 Delivery O2 Flow Rate FiO2 11/29/17 12:18 98.8 92 24 132/70 99 11/29/17 11:00 21 11/29/17 07:00 Nasal Cannula 4.00 Labs Laboratory Tests Test 11/29/17 04:55 11/29/17 08:49 White Blood Count 11.9 Red Blood Count 2.50 Hemoglobin 7.1 6.9 Hematocrit 21.6 20.8 Mean Corpuscular Volume 86.3 Mean Corpuscular Hemoglobin 28.6 Mean Corpuscular Hemoglobin Concent 33.1 Red Cell Distribution Width 17.8 Platelet Count 209 Mean Platelet Volume 9.8 Neutrophils (%) (Auto) 73.5 Lymphocytes (%) (Auto) 16.1 Monocytes (%) (Auto) 10.2 Eosinophils (%) (Auto) 0.0 Basophils (%) (Auto) 0.2 Neutrophils # (Auto) 8.8 Lymphocytes # (Auto) 1.9 Monocytes # (Auto) 1.2 Eosinophils # (Auto) 0.0 Basophils # (Auto) 0.0 CBC Comment DIFF FINAL Differential Comment Blood Urea Nitrogen 5 Creatinine 0.80 Random Glucose 158 Total Protein 6.0 Albumin 2.7 Calcium Level 7.0 Phosphorus Level 2.3 Magnesium Level 1.6 Alkaline Phosphatase 50 Aspartate Amino Transf (AST/SGOT) 27 Alanine Aminotransferase (ALT/SGPT) 42 Total Bilirubin 0.5 Sodium Level 137 Potassium Level 4.0 Chloride Level 103 Carbon Dioxide Level 25.8 Anion Gap 8 Estimat Glomerular Filtration Rate 100 Protein Corrected Calcium 7.6 Cardiovascular: Regular Lungs: Clear Abdomen: Other (incisions with some mild bloody drainage; no active bleeding notes; mildly distended; tender ), Post-op tenderness Extremities: Other (mild BLE edema without pitting ) A/P Assessment and Plan 56 year old POD1 lap assisted takedown of splenic flexure of the colon; distal sigmoid colon resection with low anterior resection -Hb drop this AM; transfuse today -Decreased fluids to 75 cc/hr -Hold Lovenox -Recheck labs in AM -Monitor for signs of bleeding -Clear liquids Attending Note - Dr. Victor Abdomen mildly distended and tender Bandage was changed last PM by nursing due to saturation Medical team ordered PRBC transfusion Monitor closely; may need CT if BP falls or pt becomes tachycardic Monitor for withdrawal signs The exam, history, and the medical decision-making described in the above note were completed with the assistance of the mid-level provider. I reviewed and agree with the findings presented. I attest that I had a [id number] encounter with the patient on the same day, and personally performed and documented my assessment and findings in the medical record. Helena Melendez Nov 29, 2017 16:28 John Victor MD Dec 04, 2017 11:43
[2017-11-29] MEDS: THIAMINE INJ 100 MG in SODIUM CHLORIDE 0.9% INJ 100 ML IV SCH (17:56)
[2017-11-29] MEDS: MULTIVITAMIN INJ 10 ML, FOLIC ACID INJ 1 MG in SODIUM CHLORID 0.9% 500 ML INJ 500 ML IV SCH (17:57)
[2017-11-29 19:14] LABS: HEMATOCRIT 22.8 % (39.0-51.0); HEMOGLOBIN 7.6 GM/DL (13.0-17.0)
[2017-11-29] MEDS: ENALAPRILAT 1.25 MG/ML VIAL IV PUSH PRN ×2 (19:19→19:25)
[2017-11-29] MEDS: ALVIMOPAN 12 MG CAPSULE PO SCH (20:33)
[2017-11-29] MEDS ORDERED: ALVIMOPAN 12 MG CAPSULE PO SCH (21:00)
[2017-11-29] MEDS: LORazepam 2 MG/ML VIAL IV PUSH PRN (21:54)
[2017-11-30] VITALS (19 sets, daily range): BP systolic 144–177; BP diastolic 66–95; PULSE 77–109; RESP 18–32; TEMP 98.8–100.2; O2SAT 95–100
[2017-11-30] MEDS: PCA - TOTAL MG MORPHINE DELIVERED PER SHIFT SCH ×2 (05:28→22:03)
[2017-11-30 07:02] LABS: AUTOMATED NEUTROPHIL # 6.2 TH/MM3 (1.8-7.7); BASOPHIL % 0.2 % (0.0-2.0); EOSINOPHIL % 0.3 % (0.0-4.0); LYMPH % 17.1 % (9.0-44.0); LYMPHOCYTE # 1.5 TH/MM3 (1.0-4.8); MEAN CELL VOLUME 85.3 FL (80.0-100.0); MEAN PLATELET VOLUME 10.1 FL (7.0-11.0); MONO % 12.1 % (0.0-8.0); MONOCYTE # 1.1 TH/MM3 (0-0.9); NEUT % 70.3 % (16.0-70.0); PLATELET COUNT 132 TH/MM3 (150-450); RED BLOOD COUNT 2.42 MIL/MM3 (4.50-5.90); RED CELL DISTRIBUTION WIDTH 18.6 % (11.6-17.2); WHITE BLOOD COUNT 8.8 TH/MM3 (4.0-11.0)
[2017-11-30 07:14] LABS: BICARBONATE 26.2 MEQ/L (21.0-32.0); CALCIUM 7.5 MG/DL (8.5-10.1); CREATININE 0.59 MG/DL (0.60-1.30); MAGNESIUM 1.7 MG/DL (1.5-2.5)
[2017-11-30 07:27] LABS: HEMATOCRIT 20.6 % (39.0-51.0)
[2017-11-30] MEDS ORDERED: SODIUM CHLOR 0.9% 250 ML INJ 250 ML IV ONE (08:00)
[2017-11-30] MEDS ORDERED: diphenhydrAMINE HCL 25 MG CAP PO PRN (08:00)
[2017-11-30] MEDS ORDERED: ACETAMINOPHEN 325 MG TAB PO PRN (08:00)
--- NOTE | 2017-11-30 08:09 | HHI.PR ---
Subjective Remarks Pt states that pain is present w movement therefore tries not to move. 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 Was able to get out to bedside commode but hasn't done much due to pain. Not passing flatus. Admits that he hasn't been using the IS as instructed RN notifies me that pt refusing SCDs +dry cough Objective Vitals Vital Signs Date Time Temp Pulse Resp B/P (MAP) Pulse Ox O2 Delivery O2 Flow Rate FiO2 11/30/17 07:00 95 Room Air 11/30/17 06:00 109 11/30/17 05:28 19 11/30/17 04:00 77 19 147/70 (95) 98 11/30/17 04:00 77 11/30/17 02:00 84 11/30/17 00:00 99.1 92 20 147/79 (101) 97 11/30/17 00:00 84 11/29/17 22:36 23 11/29/17 22:00 103 11/29/17 20:10 96 21 11/29/17 20:00 104 11/29/17 20:00 100.3 104 20 151/72 (98) 95 11/29/17 19:00 95 Room Air 11/29/17 18:00 92 11/29/17 16:00 94 11/29/17 16:00 100.7 94 24 140/65 (90) 92 11/29/17 14:00 91 11/29/17 12:18 98.8 92 24 132/70 99 11/29/17 12:18 98.8 92 24 132/70 99 11/29/17 12:03 98.8 97 16 130/64 100 11/29/17 12:00 109 11/29/17 12:00 98.8 109 7 124/65 (84) 99 11/29/17 11:00 97 21 11/29/17 10:00 94 I/O 11/29/17 11/29/17 11/29/17 11/30/17 11/30/17 11/30/17 07:00 15:00 23:00 07:00 15:00 23:00 Intake Total 1100 ml 410 ml 750 ml 667 ml Output Total 1300 ml 1000 ml 600 ml Balance -200 ml 410 ml -250 ml 67 ml IV Total 1100 ml 750 ml 667 ml Packed Cells 400 ml Blood Product IV Normal Saline Flush 10 ml Output Urine Total 1300 ml 1000 ml 600 ml Stool Total 0 ml # Bowel Movements 0 0 Result Diagram: 11/30/17 0435 11/30/17 0435 Imaging Last Impressions Abdomen/Pelvis CT 11/27/17 0000 Signed Impressions: Service Date/Time: Monday, November 27, 2017 14:46 - CONCLUSION: Appearance worrisome for endoluminal mass in the distal sigmoid/proximal rectum. Direct inspection of the colon would be suggested. Mild cirrhotic change and steatosis in the liver. Small right renal cysts. Filipe Guevara MD Objective Remarks GENERAL: Lying in bed SKIN: Warm and dry. HEAD: Normocephalic. EYES: No scleral icterus. No injection or drainage. NECK: trachea midline. CARDIOVASCULAR: Regular rate and rhythm without murmurs RESPIRATORY: Breath sounds equal bilaterally but decreased, no wheezing or use of accessory muscles GASTROINTESTINAL: Abdomen distended, incisions noted and healing well, no active bleeding or signs of infection. Bowel sounds not audible. appropriately tender to palpation. MUSCULOSKELETAL: No edema. moves extremities Procedures Laparoscopic assisted takedown splenic flexure of the colon Sigmoid colon resection with low anterior resection A/P Problem List: (1) Colonic mass ICD Code: K63.9 - Disease of intestine, unspecified Status: Resolved (2) HTN (hypertension) ICD Code: I10 - Essential (primary) hypertension Status: Chronic (3) Anemia ICD Code: D64.9 - Anemia, unspecified Status: Acute Assessment and Plan 1. Stage III rectal cancer 2. Post op anemia. Hb dropped to 7.0 3. alcohol abuse on CIWA protocol. 4. Hypertension patient not taking medicines re started 5. medical non compliance. 6. Hypocalcemia - The patient is status post Laparoscopic assisted takedown splenic flexure of the colon/Sigmoid colon resection with low anterior resection POD#2. Pain control as per general surgery. Encouraged him to get out of bed and sit on recliner today. PT has been consulted for assistance and recs. Encouraged use of IS q1hr while awake as pt is in fair amount of pain. Diet per GS. - Hb dropped to 7.0 after being transfused 1 unit PRBC. Pt is post op. No active bleeding noted. will transfuse one unit. Will place 2 units of PRBC now and monitor H&H closely. - No evidence of alcohol withdrawal thus far. Continue CIWA protocol. fall/sz precautions - Blood pressure seems to be stable. Continue current antihypertensive medications, the patient currently on losartan. - Calcium being replaced. monitor Discharge Planning Continue to monitor in the ICU for now. f/u on Hb post transfusion fall and sz precautions in placed Pt on CIWA protocol Problem Qualifiers (1) HTN (hypertension): Qualified Codes: I10 - Essential (primary) hypertension (2) Anemia: Qualified Codes: D64.9 - Anemia, unspecified Jessica Barajas MD Nov 30, 2017 08:09
[2017-11-30] MEDS: CALCIUM CARBONATE 500 MG CHEWABLE TAB CHEW SCH ×2 (08:43→21:57)
[2017-11-30] MEDS: LOSARTAN 50 MG TAB PO SCH (08:43)
[2017-11-30] MEDS: HYDROCHLOROTHIAZIDE 12.5 MG CAP PO SCH (08:43)
[2017-11-30] MEDS: SODIUM CHLORIDE 0.9% FLUSH 10 ML FLUSH IV FLUSH SCH ×2 (08:44→21:58)
[2017-11-30] MEDS: PANTOPRAZOLE SOD 40 MG DELAYED RELEASE TAB PO SCH (08:44)
[2017-11-30] MEDS: ALVIMOPAN 12 MG CAPSULE PO SCH ×2 (08:44→21:58)
[2017-11-30] MEDS ORDERED: FUROSEMIDE 20 MG/2 ML VIAL IV PUSH ONE (09:00)
[2017-11-30] MEDS: MORPHINE SULFATE 30 MG/30 ML PCA IV SCH (09:09)
[2017-11-30] MEDS ORDERED: DIATRIZOATE MEGLUM/DIATRIZOATE SOD 9 ML CUP PO ONE (10:45)
[2017-11-30 13:27] LABS: INTERNATIONAL NORMALIZED RATIO 1.1 RATIO; PROTHROMBIN TIME - PATIENT 10.8 SEC (9.8-11.6)
[2017-11-30] MEDS: ACETAMINOPHEN/HYDROcodone 325 MG/5 MG TAB PO PRN (15:24)
--- NOTE | 2017-11-30 16:17 | HHI.PR ---
Subjective Subjective Notes Seen this AM; Dr. Barajas at bedside as well Slightly agitated Objective Vitals/I&O Vital Signs Date Time Temp Pulse Resp B/P (MAP) Pulse Ox O2 Delivery O2 Flow Rate FiO2 11/30/17 14:33 99.3 81 22 166/95 96 11/30/17 13:10 21 11/30/17 07:00 Room Air 11/29/17 07:00 4.00 Labs Laboratory Tests Test 11/30/17 04:35 11/30/17 12:30 White Blood Count 8.8 Red Blood Count 2.42 Hemoglobin 7.0 Hematocrit 20.6 Mean Corpuscular Volume 85.3 Mean Corpuscular Hemoglobin 29.0 Mean Corpuscular Hemoglobin Concent 34.0 Red Cell Distribution Width 18.6 Platelet Count 132 Mean Platelet Volume 10.1 Neutrophils (%) (Auto) 70.3 Lymphocytes (%) (Auto) 17.1 Monocytes (%) (Auto) 12.1 Eosinophils (%) (Auto) 0.3 Basophils (%) (Auto) 0.2 Neutrophils # (Auto) 6.2 Lymphocytes # (Auto) 1.5 Monocytes # (Auto) 1.1 Eosinophils # (Auto) 0.0 Basophils # (Auto) 0.0 CBC Comment DIFF FINAL Differential Comment Blood Urea Nitrogen 4 Creatinine 0.59 Random Glucose 126 Calcium Level 7.5 Magnesium Level 1.7 Sodium Level 138 Potassium Level 4.0 Chloride Level 105 Carbon Dioxide Level 26.2 Anion Gap 7 Estimat Glomerular Filtration Rate 142 Prothrombin Time 10.8 Prothromb Time International Ratio 1.1 Cardiovascular: Regular Lungs: Clear Abdomen: Other (midline incision with scant draiange; post op tenderness; mildly distended ) Extremities: Other (mild generalized edema ) A/P Assessment and Plan 56 year old POD2 lap assisted takedown of splenic flexure of the colon; distal sigmoid colon resection with low anterior resection -S/p transfusion yesterday---Hb today 7.0 today; plt 132; transfuse both RBCs and platelets today -Recheck labs this afternoon -CT abd/pelvis -Continue fluids to 75 cc/hr -Continue to hold Lovenox -Monitor for signs of bleeding Attending Note - Dr. Victor Abdomen less tender, but still moderately distended Hemodynamically stable, but drop in Hb concerning Will obtain CT today - prelim results show ascitic fluid, no blood/hematoma Keep in ISC today Hold any anticoagulation for now The exam, history, and the medical decision-making described in the above note were completed with the assistance of the mid-level provider. I reviewed and agree with the findings presented. I attest that I had a [id number] encounter with the patient on the same day, and personally performed and documented my assessment and findings in the medical record. Helena Melendez Nov 30, 2017 16:17 John Victor MD Dec 04, 2017 11:45
[2017-11-30] MEDS ORDERED: IOHEXOL 350 MG/ML 10 ML VIAL (for RAD DIAG) IVCONTRAST ONE (17:32)
--- NOTE | 2017-11-30 17:45 | RADRPT ---
EXAM DATE/TIME: 11/30/2017 17:26 [facility] COMPARISON: CT ABDOMEN & PELVIS W CONTRAST, November 27, 2017, 14:46. INDICATIONS : Post operative colon resection, low HMG IV CONTRAST: 60 cc Omnipaque 350 (iohexol) IV ORAL CONTRAST: Prescribed oral contrast ingested. RADIATION DOSE: 16.62 CTDIvol (mGy) MEDICAL HISTORY : Hypertension. Carcinoma, colon. Cardiovascular disease SURGICAL HISTORY : Colon resection. ENCOUNTER: Initial ACUITY: 3 days PAIN SCALE: 6/10 LOCATION: Bilateral lower quadrant TECHNIQUE: Volumetric scanning of the abdomen and pelvis was performed. Using automated exposure control and ad justment of the mA and/or kV according to patient size, radiation dose was kept as low as reasonably achievable to obtain optimal diagnostic quality images. DICOM format image data is available electro nically for review and comparison. FINDINGS: Posterior lung bases suggest small bilateral posterior layering pleural effusions. Evidence of recent abdominal surgery in the midline and just to the right with superficial mulu is appreciated. Ther e are circumferential beaded chain type clips around the junction of the mid and distal sigmoid colon . There is a marked amount of ascitic fluid in the abdomen and there are small bubbles of free air an teriorly in the left pelvis. This could represent either postsurgical change or perforation particula rly in view of the marked amount of fluid. The liver spleen bilateral kidneys adrenal glands gallbladder and pancreas appear normal CONCLUSION: Evidence of recent abdominal pelvic surgery. Beaded chain circumferential clips around the region of the junction mid and distal sigmoid colon. A large amount of ascitic fluid in the abdomen and pelvis as well as small bilateral pleural effusions appreciated. There is a small amount of free air droplet s anteriorly in the left pelvis .the latter may represent postsurgical change Tk Paul MD on November 30, 2017 at 17:36 Board Certified Radiologist. This report was verified electronically.
[2017-11-30] MEDS: D5-NS + KCL 20 MEQ INJ 1,000 ML IV SCH ×2 (18:23→21:59)
[2017-11-30] MEDS: MULTIVITAMIN INJ 10 ML, FOLIC ACID INJ 1 MG in SODIUM CHLORID 0.9% 500 ML INJ 500 ML IV SCH (18:24)
[2017-11-30 18:45] LABS: HEMATOCRIT 24.8 % (39.0-51.0); HEMOGLOBIN 8.6 GM/DL (13.0-17.0)
[2017-12-01] VITALS (11 sets, daily range): BP systolic 139–169; BP diastolic 70–94; PULSE 77–94; RESP 16–24; TEMP 97.7–99.8; O2SAT 86–100
[2017-12-01] MEDS: ENALAPRILAT 1.25 MG/ML VIAL IV PUSH PRN ×2 (01:47→18:09)
[2017-12-01] MEDS: LORazepam 2 MG/ML VIAL IV PUSH PRN ×2 (04:38→22:08)
[2017-12-01 05:27] LABS: AUTOMATED NEUTROPHIL # 7.3 TH/MM3 (1.8-7.7); BASOPHIL % 0.5 % (0.0-2.0); EOSINOPHIL # 0.1 TH/MM3 (0-0.4); HEMATOCRIT 24.9 % (39.0-51.0); HEMOGLOBIN 8.5 GM/DL (13.0-17.0); LYMPH % 12.8 % (9.0-44.0); LYMPHOCYTE # 1.3 TH/MM3 (1.0-4.8); MEAN CELL VOLUME 84.7 FL (80.0-100.0); MEAN CORPUSCULAR HEMOGLOBIN 28.8 PG (27.0-34.0); MEAN PLATELET VOLUME 9.4 FL (7.0-11.0); MONO % 11.2 % (0.0-8.0); MONOCYTE # 1.1 TH/MM3 (0-0.9); NEUT % 74.5 % (16.0-70.0); PLATELET COUNT 157 TH/MM3 (150-450); RED BLOOD COUNT 2.94 MIL/MM3 (4.50-5.90); RED CELL DISTRIBUTION WIDTH 17.5 % (11.6-17.2); WHITE BLOOD COUNT 9.9 TH/MM3 (4.0-11.0)
[2017-12-01 05:59] LABS: BICARBONATE 30.1 MEQ/L (21.0-32.0); CALCIUM 7.6 MG/DL (8.5-10.1); CREATININE 0.68 MG/DL (0.60-1.30)
[2017-12-01] MEDS: PCA - TOTAL MG MORPHINE DELIVERED PER SHIFT SCH ×3 (06:08→20:29)
--- NOTE | 2017-12-01 08:13 | HHI.PR ---
Subjective Remarks Pt currently states he has no pain if he doesn't move. Did get out of bed "a lot " yesterday. Wishes he could have his diet advanced. Feels claustrophobic at times. Less agitated this morning Objective Vitals Vital Signs Date Time Temp Pulse Resp B/P (MAP) Pulse Ox O2 Delivery O2 Flow Rate FiO2 12/01/17 06:08 12 12/01/17 06:00 80 12/01/17 04:00 99.8 83 24 150/91 (110) 86 12/01/17 04:00 83 12/01/17 02:00 79 12/01/17 00:00 99.3 77 19 160/85 (110) 95 12/01/17 00:00 77 11/30/17 22:03 22 11/30/17 22:00 90 11/30/17 20:00 80 11/30/17 20:00 99.1 80 21 144/75 (98) 98 11/30/17 19:46 98 21 11/30/17 19:00 94 Room Air 11/30/17 18:00 78 11/30/17 16:00 99.3 86 18 168/90 (116) 100 11/30/17 16:00 86 11/30/17 14:33 99.3 81 22 166/95 96 11/30/17 14:00 84 11/30/17 13:10 97 21 11/30/17 12:20 99.3 90 32 162/83 99 11/30/17 12:15 99.0 106 30 177/89 99 11/30/17 12:00 100.2 86 21 173/75 (107) 99 11/30/17 12:00 98.8 91 21 173/75 11/30/17 12:00 91 11/30/17 10:22 99.2 85 22 150/90 95 11/30/17 10:07 99.2 81 21 152/87 95 11/30/17 10:00 84 11/30/17 09:09 21 I/O 11/30/17 11/30/17 11/30/17 12/01/17 12/01/17 12/01/17 07:00 15:00 23:00 07:00 15:00 23:00 Intake Total 667 ml 763 ml 1329.2 ml Output Total 600 ml 3800 ml Balance 67 ml 763 ml -2470.8 ml Intake Oral 100 ml IV Total 667 ml 333 ml 510.2 ml Packed Cells 400 ml 400 ml Platelets 289 ml Blood Product IV Normal Saline Flush 30 ml 30 ml Output Urine Total 600 ml 3800 ml Stool Total 0 ml # Voids 5 # Bowel Movements 1 1 Result Diagram: 12/01/17 0433 12/01/17 0433 Imaging Last Impressions Abdomen/Pelvis CT 11/30/17 0937 Signed Impressions: Service Date/Time: Thursday, November 30, 2017 17:26 - CONCLUSION: Evidence of recent abdominal pelvic surgery. Beaded chain circumferential clips around the region of the junction mid and distal sigmoid colon. A large amount of ascitic fluid in the abdomen and pelvis as well as small bilateral pleural effusions appreciated. There is a small amount of free air droplets anteriorly in the left pelvis .the latter may represent postsurgical change Tk Paul MD Objective Remarks GENERAL: Lying in bed SKIN: Warm and dry. HEAD: Normocephalic. EYES: No scleral icterus. No injection or drainage. NECK: trachea midline. CARDIOVASCULAR: Regular rate and rhythm without murmurs RESPIRATORY: Breath sounds equal bilaterally but decreased, no wheezing or use of accessory muscles GASTROINTESTINAL: Abdomen distended but softer, abdominal binder in place. appropriately tender to palpation. MUSCULOSKELETAL: No edema. moves extremities Procedures Laparoscopic assisted takedown splenic flexure of the colon Sigmoid colon resection with low anterior resection A/P Problem List: (1) Colonic mass ICD Code: K63.9 - Disease of intestine, unspecified Status: Resolved (2) HTN (hypertension) ICD Code: I10 - Essential (primary) hypertension Status: Chronic (3) Anemia ICD Code: D64.9 - Anemia, unspecified Status: Acute Assessment and Plan 1. Stage III rectal cancer 2. Post op anemia/ thrombocytopenia 3. alcohol abuse on CIWA protocol. 4. Hypertension patient not taking medicines re started 5. medical non compliance. 6. Hypocalcemia - The patient is status post Laparoscopic assisted takedown splenic flexure of the colon/Sigmoid colon resection with low anterior resection POD#3. Pain control as per general surgery. Encouraged him to get out of bed and sit on recliner as much as tolerated. PT following and recommends home health PT for now. Encouraged use of IS q1hr while awake as pt is in fair amount of pain. Diet per GS. - Hb 8.5 this morning s/p 3 units PRBC. Monitor closely. Pt also received 1 units of platelets. No active bleeding noted. Transfuse if Hb <7.0. Monitor platelets as well. - No evidence of alcohol withdrawal thus far. Continue CIWA protocol. fall/sz precautions - Blood pressure seems to be stable. Continue current antihypertensive medications, the patient currently on losartan. - Calcium being replaced and slowly going up. monitor Discharge Planning Continue to monitor in the ICU for now. Monitor Hb. fall and sz precautions in placed Pt on CIWA protocol afebrile Problem Qualifiers (1) HTN (hypertension): Qualified Codes: I10 - Essential (primary) hypertension (2) Anemia: Qualified Codes: D64.9 - Anemia, unspecified Jessica Barajas MD Dec 01, 2017 08:13
[2017-12-01] MEDS: CALCIUM CARBONATE 500 MG CHEWABLE TAB CHEW SCH ×2 (08:18→20:28)
[2017-12-01] MEDS: THIAMINE HCL 100 MG TAB PO SCH (08:18)
[2017-12-01] MEDS: HYDROCHLOROTHIAZIDE 12.5 MG CAP PO SCH (08:18)
[2017-12-01] MEDS: ALVIMOPAN 12 MG CAPSULE PO SCH ×2 (08:18→20:28)
[2017-12-01] MEDS: ACETAMINOPHEN/HYDROcodone 325 MG/5 MG TAB PO PRN ×3 (08:18→22:10)
[2017-12-01] MEDS: LOSARTAN 50 MG TAB PO SCH (08:19)
[2017-12-01] MEDS: PANTOPRAZOLE SOD 40 MG DELAYED RELEASE TAB PO SCH (08:19)
[2017-12-01] MEDS: SODIUM CHLORIDE 0.9% FLUSH 10 ML FLUSH IV FLUSH SCH ×2 (09:00→20:24)
[2017-12-01] MEDS: D5-NS + KCL 20 MEQ INJ 1,000 ML IV SCH (11:00)
--- NOTE | 2017-12-01 11:11 | HHI.PR ---
Subjective Subjective Notes starving, needs food richard, no N/V. reports several small BMs and lots of gas Objective Vitals/I&O Vital Signs Date Time Temp Pulse Resp B/P (MAP) Pulse Ox O2 Delivery O2 Flow Rate FiO2 12/01/17 08:00 99.3 82 21 146/77 (100) 98 12/01/17 07:00 Room Air 11/30/17 19:46 21 11/29/17 07:00 4.00 Labs Laboratory Tests Test 11/30/17 12:30 11/30/17 18:00 12/01/17 04:33 Prothrombin Time 10.8 Prothromb Time International Ratio 1.1 Hemoglobin 8.6 8.5 Hematocrit 24.8 24.9 White Blood Count 9.9 Red Blood Count 2.94 Mean Corpuscular Volume 84.7 Mean Corpuscular Hemoglobin 28.8 Mean Corpuscular Hemoglobin Concent 34.0 Red Cell Distribution Width 17.5 Platelet Count 157 Mean Platelet Volume 9.4 Neutrophils (%) (Auto) 74.5 Lymphocytes (%) (Auto) 12.8 Monocytes (%) (Auto) 11.2 Eosinophils (%) (Auto) 1.0 Basophils (%) (Auto) 0.5 Neutrophils # (Auto) 7.3 Lymphocytes # (Auto) 1.3 Monocytes # (Auto) 1.1 Eosinophils # (Auto) 0.1 Basophils # (Auto) 0.0 CBC Comment DIFF FINAL Differential Comment Blood Urea Nitrogen 5 Creatinine 0.68 Random Glucose 113 Calcium Level 7.6 Sodium Level 137 Potassium Level 3.7 Chloride Level 101 Carbon Dioxide Level 30.1 Anion Gap 6 Estimat Glomerular Filtration Rate 120 Abdomen: Non-distended, Post-op tenderness, BS normal Wound Wound : Wound Location: Abdomen Appearance: Clean & Dry Dressing: Dry A/P Assessment and Plan s/p colectomy transfer to floor advance diet KVO IVF FU CBC in am Allan Richmond MD Dec 01, 2017 11:11
[2017-12-01] MEDS: MULTIVITAMIN INJ 10 ML, FOLIC ACID INJ 1 MG in SODIUM CHLORID 0.9% 500 ML INJ 500 ML IV SCH (20:25)
[2017-12-02] VITALS (7 sets, daily range): BP systolic 137–169; BP diastolic 75–96; PULSE 87–96; RESP 16–20; TEMP 98–100.1; O2SAT 95–97
[2017-12-02] MEDS: PCA - TOTAL MG MORPHINE DELIVERED PER SHIFT SCH ×3 (04:49→21:09)
[2017-12-02 05:21] LABS: AUTOMATED NEUTROPHIL # 5.7 TH/MM3 (1.8-7.7); BASOPHIL # 0.1 TH/MM3 (0-0.2); BASOPHIL % 0.7 % (0.0-2.0); EOSINOPHIL # 0.1 TH/MM3 (0-0.4); EOSINOPHIL % 1.6 % (0.0-4.0); HEMATOCRIT 26.3 % (39.0-51.0); HEMOGLOBIN 9.1 GM/DL (13.0-17.0); LYMPH % 13.4 % (9.0-44.0); LYMPHOCYTE # 1.1 TH/MM3 (1.0-4.8); MEAN CELL VOLUME 85.2 FL (80.0-100.0); MEAN CORPUSCULAR HEMOGLOBIN 29.6 PG (27.0-34.0); MEAN CORPUSCULAR HGB CONC 34.8 % (32.0-36.0); MEAN PLATELET VOLUME 9.4 FL (7.0-11.0); MONO % 14.2 % (0.0-8.0); MONOCYTE # 1.2 TH/MM3 (0-0.9); NEUT % 70.1 % (16.0-70.0); PLATELET COUNT 153 TH/MM3 (150-450); RED BLOOD COUNT 3.09 MIL/MM3 (4.50-5.90); RED CELL DISTRIBUTION WIDTH 17.7 % (11.6-17.2); WHITE BLOOD COUNT 8.2 TH/MM3 (4.0-11.0)
[2017-12-02 05:23] LABS: BICARBONATE 28.5 MEQ/L (21.0-32.0); CALCIUM 7.9 MG/DL (8.5-10.1); CREATININE 0.61 MG/DL (0.60-1.30)
[2017-12-02] MEDS: ACETAMINOPHEN/HYDROcodone 325 MG/5 MG TAB PO PRN ×3 (07:59→21:04)
[2017-12-02] MEDS: PANTOPRAZOLE SOD 40 MG DELAYED RELEASE TAB PO SCH (08:00)
[2017-12-02] MEDS: THIAMINE HCL 100 MG TAB PO SCH (08:00)
[2017-12-02] MEDS: HYDROCHLOROTHIAZIDE 12.5 MG CAP PO SCH (08:00)
[2017-12-02] MEDS: CALCIUM CARBONATE 500 MG CHEWABLE TAB CHEW SCH ×2 (08:00→21:02)
[2017-12-02] MEDS: ALVIMOPAN 12 MG CAPSULE PO SCH ×2 (08:00→21:02)
[2017-12-02] MEDS: LOSARTAN 50 MG TAB PO SCH (08:00)
[2017-12-02] MEDS: SODIUM CHLORIDE 0.9% FLUSH 10 ML FLUSH IV FLUSH SCH ×2 (08:01→21:03)
[2017-12-02] MEDS ORDERED: POTASSIUM CHLORIDE 20 MEQ CONTROLLED RELEASE TAB PO ONE ×2 (11:00→11:30)
--- NOTE | 2017-12-02 11:00 | HHI.PR ---
Subjective Subjective Notes CT scan reviewed, no significant problems, postop changes Objective Vitals/I&O Vital Signs Date Time Temp Pulse Resp B/P (MAP) Pulse Ox O2 Delivery O2 Flow Rate FiO2 12/02/17 08:21 96 12/02/17 08:00 99.7 96 18 169/90 (116) 12/02/17 04:29 21 12/01/17 07:00 Room Air 11/29/17 07:00 4.00 Labs Laboratory Tests Test 12/02/17 04:13 White Blood Count 8.2 Red Blood Count 3.09 Hemoglobin 9.1 Hematocrit 26.3 Mean Corpuscular Volume 85.2 Mean Corpuscular Hemoglobin 29.6 Mean Corpuscular Hemoglobin Concent 34.8 Red Cell Distribution Width 17.7 Platelet Count 153 Mean Platelet Volume 9.4 Neutrophils (%) (Auto) 70.1 Lymphocytes (%) (Auto) 13.4 Monocytes (%) (Auto) 14.2 Eosinophils (%) (Auto) 1.6 Basophils (%) (Auto) 0.7 Neutrophils # (Auto) 5.7 Lymphocytes # (Auto) 1.1 Monocytes # (Auto) 1.2 Eosinophils # (Auto) 0.1 Basophils # (Auto) 0.1 CBC Comment DIFF FINAL Differential Comment Blood Urea Nitrogen 4 Creatinine 0.61 Random Glucose 94 Calcium Level 7.9 Sodium Level 133 Potassium Level 3.3 Chloride Level 99 Carbon Dioxide Level 28.5 Anion Gap 6 Estimat Glomerular Filtration Rate 136 Cardiovascular: Regular Lungs: Clear Abdomen: Non-distended, Post-op tenderness Extremities: No edema, Perfused, SCD's on Narrative Exam wound c/d/i A/P Assessment and Plan 56yo male s/p lap assisted LAR, stable. tolerating PO pain ok +BM HH stable, follow if HH and vitals remains stable possibly DC next 24-48h Praneeth Patton MD Dec 02, 2017 11:00
--- NOTE | 2017-12-02 11:21 | HHI.PR ---
Subjective Remarks Pain is improving, does get worst w movement but has been ambulating and sitting on recliner. off [employer] pump. No nausea or vomiting Objective Vitals Vital Signs Date Time Temp Pulse Resp B/P (MAP) Pulse Ox O2 Delivery O2 Flow Rate FiO2 12/02/17 08:21 96 12/02/17 08:00 99.7 96 18 169/90 (116) 95 12/02/17 04:49 16 12/02/17 04:29 21 12/02/17 00:00 98.0 88 16 145/89 (107) 96 12/01/17 20:29 18 12/01/17 20:00 97.8 94 17 155/84 (107) 97 12/01/17 17:25 97.7 91 16 169/94 (119) 99 12/01/17 16:00 98.7 81 20 147/70 (95) 100 12/01/17 14:00 81 12/01/17 14:00 20 12/01/17 12:00 84 12/01/17 12:00 98.7 87 21 139/79 (99) 100 I/O 12/01/17 12/01/17 12/01/17 12/02/17 12/02/17 12/02/17 07:00 15:00 23:00 07:00 15:00 23:00 Intake Total 720 ml 1590.2 ml Balance 720 ml 1590.2 ml Intake Oral 720 ml 1080 ml IV Total 510.2 ml # Voids 5 4 3 # Bowel Movements 1 0 Result Diagram: 12/02/17 0413 12/02/17 0413 Imaging Last Impressions Abdomen/Pelvis CT 11/30/17 0937 Signed Impressions: Service Date/Time: Thursday, November 30, 2017 17:26 - CONCLUSION: Evidence of recent abdominal pelvic surgery. Beaded chain circumferential clips around the region of the junction mid and distal sigmoid colon. A large amount of ascitic fluid in the abdomen and pelvis as well as small bilateral pleural effusions appreciated. There is a small amount of free air droplets anteriorly in the left pelvis .the latter may represent postsurgical change Tk Paul MD Objective Remarks GENERAL: sitting on recliner HEAD: Normocephalic. EYES: No scleral icterus. No injection or drainage. NECK: trachea midline. CARDIOVASCULAR: Regular rate and rhythm without murmurs RESPIRATORY: Breath sounds equal bilaterally but decreased, no wheezing or use of accessory muscles GASTROINTESTINAL: Abdomen distended but softer, abdominal binder in place, dressing d/c/i. appropriately tender to palpation. MUSCULOSKELETAL: No edema. moves extremities Procedures Laparoscopic assisted takedown splenic flexure of the colon Sigmoid colon resection with low anterior resection A/P Problem List: (1) Colonic mass ICD Code: K63.9 - Disease of intestine, unspecified Status: Resolved (2) HTN (hypertension) ICD Code: I10 - Essential (primary) hypertension Status: Chronic (3) Anemia ICD Code: D64.9 - Anemia, unspecified Status: Acute Assessment and Plan 1. Stage III rectal cancer 2. Post op anemia/ thrombocytopenia 3. alcohol abuse on CIWA protocol. 4. Hypertension patient not taking medicines re started 5. medical non compliance. 6. Hypocalcemia - The patient is status post Laparoscopic assisted takedown splenic flexure of the colon/Sigmoid colon resection with low anterior resection POD#4. Pain control as per general surgery. Encouraged him to get out of bed and sit on recliner as much as tolerated. PT following and recommends home health PT for now. Encouraged use of IS q1hr while awake as pt is in fair amount of pain. Diet per . - Hb 9.1 this morning s/p 3 units PRBC. Monitor closely. Pt also received 1 units of platelets. No active bleeding noted. Transfuse if Hb <7.0. Monitor platelets as well. - No evidence of alcohol withdrawal thus far. Continue CIWA protocol. fall/sz precautions - Blood pressure seems to be stable. Continue current antihypertensive medications, the patient currently on losartan. - Calcium being replaced and slowly going up. monitor Discharge Planning continue ambulation, on a regular diet per for discharge. Awaiting clearance from . [facility]. Replace K fall and sz precautions in placed Pt on CIWA protocol Problem Qualifiers (1) HTN (hypertension): Qualified Codes: I10 - Essential (primary) hypertension (2) Anemia: Qualified Codes: D64.9 - Anemia, unspecified Jessica Barajas MD Dec 02, 2017 11:21
[2017-12-02] MEDS: ENALAPRILAT 1.25 MG/ML VIAL IV PUSH PRN (16:49)
[2017-12-02] MEDS: LORazepam 2 MG/ML VIAL IV PUSH PRN (21:08)
[2017-12-03] VITALS: BP 147/75; PULSE 85; RESP 18; TEMP 98.9; O2SAT 97
[2017-12-03] MEDS: PCA - TOTAL MG MORPHINE DELIVERED PER SHIFT SCH (06:00)
[2017-12-03 08:00] VITALS: BP 155/81; PULSE 78; RESP 16; TEMP 98.3; O2SAT 94
[2017-12-03 08:17] LABS: AUTOMATED NEUTROPHIL # 4.8 TH/MM3 (1.8-7.7); BASOPHIL % 0.6 % (0.0-2.0); EOSINOPHIL # 0.1 TH/MM3 (0-0.4); EOSINOPHIL % 1.7 % (0.0-4.0); HEMATOCRIT 26.4 % (39.0-51.0); HEMOGLOBIN 9.2 GM/DL (13.0-17.0); LYMPHOCYTE # 1.2 TH/MM3 (1.0-4.8); MEAN CELL VOLUME 85.3 FL (80.0-100.0); MEAN CORPUSCULAR HEMOGLOBIN 29.5 PG (27.0-34.0); MEAN CORPUSCULAR HGB CONC 34.7 % (32.0-36.0); MEAN PLATELET VOLUME 9.5 FL (7.0-11.0); MONO % 18.8 % (0.0-8.0); MONOCYTE # 1.4 TH/MM3 (0-0.9); NEUT % 62.9 % (16.0-70.0); PLATELET COUNT 184 TH/MM3 (150-450); RED CELL DISTRIBUTION WIDTH 18.1 % (11.6-17.2); WHITE BLOOD COUNT 7.7 TH/MM3 (4.0-11.0)
[2017-12-03] MEDS: CALCIUM CARBONATE 500 MG CHEWABLE TAB CHEW SCH ×2 (08:43→22:26)
[2017-12-03] MEDS: ALVIMOPAN 12 MG CAPSULE PO SCH ×2 (08:44→22:26)
[2017-12-03] MEDS: PANTOPRAZOLE SOD 40 MG DELAYED RELEASE TAB PO SCH (08:44)
[2017-12-03] MEDS: LOSARTAN 50 MG TAB PO SCH (08:44)
[2017-12-03] MEDS: HYDROCHLOROTHIAZIDE 12.5 MG CAP PO SCH (08:44)
[2017-12-03] MEDS: THIAMINE HCL 100 MG TAB PO SCH (08:44)
[2017-12-03] MEDS: SODIUM CHLORIDE 0.9% FLUSH 10 ML FLUSH IV FLUSH SCH ×2 (08:45→22:27)
[2017-12-03 08:55] LABS: CALCIUM 8.4 MG/DL (8.5-10.1); CREATININE 0.63 MG/DL (0.60-1.30)
[2017-12-03 08:56] LABS: BICARBONATE 28.7 MEQ/L (21.0-32.0)
[2017-12-03] MEDS ORDERED: POTASSIUM CHLORIDE 20 MEQ PWD PACKET PO ONE (09:15)
[2017-12-03 12:00] VITALS: BP 137/82; PULSE 85; RESP 18; TEMP 99.2; O2SAT 97
--- NOTE | 2017-12-03 13:31 | HHI.PR ---
Subjective Remarks Patient is reporting approximately 6 watery diarrhea episodes in the last 24 hours. No other complaints. No fevers. Objective Vital Signs Date Time Temp Pulse Resp B/P (MAP) Pulse Ox O2 Delivery O2 Flow Rate FiO2 12/03/17 12:00 99.2 85 18 137/82 (100) 97 12/03/17 08:00 98.3 78 16 155/81 (105) 94 12/03/17 00:00 98.9 85 18 147/75 (99) 97 12/02/17 20:00 99.3 87 20 137/75 (95) 97 12/02/17 17:48 92 141/81 (101) 12/02/17 16:00 100.1 94 17 162/96 (118) 97 12/02/17 14:00 16 I/O 12/02/17 12/02/17 12/02/17 12/03/17 12/03/17 12/03/17 07:00 15:00 23:00 07:00 15:00 23:00 Intake Total 1590.2 ml 600 ml 760 ml Balance 1590.2 ml 600 ml 760 ml Intake Oral 1080 ml 600 ml 760 ml IV Total 510.2 ml # Voids 3 7 4 # Bowel Movements 0 0 Result Diagram: 12/03/17 0711 12/03/17 0711 Objective Remarks GENERAL: NAD, A&Ox3 HEAD: Normocephalic. NECK: Supple, trachea midline. No lymphadenopathy. EYES: No scleral icterus. No injection or drainage. CARDIOVASCULAR: Regular rate and rhythm without murmurs, gallops, or rubs. RESPIRATORY: Breath sounds equal bilaterally. No accessory muscle use. GASTROINTESTINAL: Abdomen soft, non-tender, nondistended. MUSCULOSKELETAL: No cyanosis, or edema. SKIN: Warm and dry. NEURO: No focal neurological deficitis. A/P Problem List: (1) Anemia ICD Code: D64.9 - Anemia, unspecified Status: Acute (2) HTN (hypertension) ICD Code: I10 - Essential (primary) hypertension Status: Chronic (3) Colonic mass ICD Code: K63.9 - Disease of intestine, unspecified Status: Resolved Assessment and Plan 56-year-old male admitted secondary to tumor of the colon. Now status post colon tumor resection. Stage III rectal cancer Status post laparoscopic colectomy General surgery following Continue pain treatment is needed Diarrhea Preferences for less than 4 episodes of diarrhea in 24 hours, to avoid dehydration Patient's current rate is 6 episodes in 24 hours Etiology could be related to alcohol withdrawal History of alcohol abuse Delirium tremens Improving CIWA protocol discontinued Anemia (postop) Pancytopenia Follow CBC Hypertension Stable Continue present treatment Follow blood pressures Hypocalcemia Follow calcium levels Replace as needed Discharge planning Decreased rate of diarrhea preferred Surgical clearance pending Problem Qualifiers (1) Anemia: Qualified Codes: D64.9 - Anemia, unspecified (2) HTN (hypertension): Qualified Codes: I10 - Essential (primary) hypertension Dieter De La O MD Dec 03, 2017 13:31
[2017-12-03] MEDS: ACETAMINOPHEN/HYDROcodone 325 MG/5 MG TAB PO PRN ×2 (14:02→22:27)
--- NOTE | 2017-12-03 14:19 | HHI.PR ---
Subjective Subjective Notes Up to chair Doing well Read three books this weekend Objective Vitals/I&O Vital Signs Date Time Temp Pulse Resp B/P (MAP) Pulse Ox O2 Delivery O2 Flow Rate FiO2 12/03/17 12:00 99.2 85 18 137/82 (100) 97 12/02/17 04:29 21 12/01/17 07:00 Room Air 11/29/17 07:00 4.00 Labs Laboratory Tests Test 12/03/17 07:11 White Blood Count 7.7 Red Blood Count 3.10 Hemoglobin 9.2 Hematocrit 26.4 Mean Corpuscular Volume 85.3 Mean Corpuscular Hemoglobin 29.5 Mean Corpuscular Hemoglobin Concent 34.7 Red Cell Distribution Width 18.1 Platelet Count 184 Mean Platelet Volume 9.5 Neutrophils (%) (Auto) 62.9 Lymphocytes (%) (Auto) 16.0 Monocytes (%) (Auto) 18.8 Eosinophils (%) (Auto) 1.7 Basophils (%) (Auto) 0.6 Neutrophils # (Auto) 4.8 Lymphocytes # (Auto) 1.2 Monocytes # (Auto) 1.4 Eosinophils # (Auto) 0.1 Basophils # (Auto) 0.0 CBC Comment DIFF FINAL Differential Comment Blood Urea Nitrogen 6 Creatinine 0.63 Random Glucose 97 Calcium Level 8.4 Sodium Level 133 Potassium Level 3.3 Chloride Level 97 Carbon Dioxide Level 28.7 Anion Gap 7 Estimat Glomerular Filtration Rate 131 Cardiovascular: Regular Lungs: Clear Abdomen: Other (midline incision with mulu; minimal tenderness with palpation; soft ) Extremities: No edema A/P Assessment and Plan 56 year old POD5 lap assisted takedown of splenic flexure of the colon; distal sigmoid colon resection with low anterior resection -Hmg remains stable -Tolerating regular diet -Pain controlled using oral pain mediations -No signs of bleeding -Likely home tomorrow if uneventful night Attending Statement The exam, history, and the medical decision-making described in the above note were completed with the assistance of the mid-level provider. I reviewed and agree with the findings presented. I attest that I had a [id number] encounter with the patient on the same day, and personally performed and documented my assessment and findings in the medical record. Abdominal exam: postop tenderness, no peritonitis or guarding, incision clean, dry, intact pain controlled tolerating PO and having BM complains of being very weak, ok to DC home next 24h if weakness improves Helena Melendez Dec 03, 2017 14:19 Praneeth Patton MD Dec 07, 2017 12:57
[2017-12-03 16:00] VITALS: BP 135/77; PULSE 84; RESP 16; TEMP 99.6; O2SAT 97
[2017-12-03 17:29] VITALS: O2SAT 97
[2017-12-03 20:00] VITALS: BP 147/76; PULSE 87; RESP 20; TEMP 99.5; O2SAT 96
[2017-12-04] VITALS: BP 136/77; PULSE 80; RESP 18; TEMP 98; O2SAT 97
[2017-12-04 07:36] LABS: AUTOMATED NEUTROPHIL # 5.7 TH/MM3 (1.8-7.7); BASOPHIL # 0.1 TH/MM3 (0-0.2); BASOPHIL % 0.9 % (0.0-2.0); EOSINOPHIL # 0.2 TH/MM3 (0-0.4); EOSINOPHIL % 2.1 % (0.0-4.0); HEMATOCRIT 27.8 % (39.0-51.0); HEMOGLOBIN 9.4 GM/DL (13.0-17.0); LYMPH % 17.7 % (9.0-44.0); LYMPHOCYTE # 1.7 TH/MM3 (1.0-4.8); MEAN CELL VOLUME 85.7 FL (80.0-100.0); MEAN CORPUSCULAR HEMOGLOBIN 28.9 PG (27.0-34.0); MEAN CORPUSCULAR HGB CONC 33.7 % (32.0-36.0); MEAN PLATELET VOLUME 9.9 FL (7.0-11.0); MONO % 17.8 % (0.0-8.0); MONOCYTE # 1.7 TH/MM3 (0-0.9); NEUT % 61.5 % (16.0-70.0); PLATELET COUNT 220 TH/MM3 (150-450); RED BLOOD COUNT 3.24 MIL/MM3 (4.50-5.90); RED CELL DISTRIBUTION WIDTH 18.1 % (11.6-17.2); WHITE BLOOD COUNT 9.3 TH/MM3 (4.0-11.0)
[2017-12-04 07:53] LABS: ALKALINE PHOSPHATASE 57 U/L (45-117); ALT (GPT) 31 U/L (12-78); AST (GOT) 29 U/L (15-37); BICARBONATE 30.1 MEQ/L (21.0-32.0); BLOOD UREA NITROGEN 6 MG/DL (7-18); CALCIUM 8.9 MG/DL (8.5-10.1); CHLORIDE 98 MEQ/L (98-107); CREATININE 0.67 MG/DL (0.60-1.30); GLOMERULAR FILTRATION RATE 122 ML/MIN (>89); GLUCOSE,RANDOM 97 MG/DL (74-106); SODIUM (NA) 135 MEQ/L (136-145); TOTAL BILIRUBIN ADULT 1.8 MG/DL (0.2-1.0); TOTAL PROTEIN 6.8 GM/DL (6.4-8.2)
[2017-12-04 08:00] VITALS: BP 146/79; PULSE 82; RESP 21; TEMP 99.5; O2SAT 96
[2017-12-04] MEDS: LOSARTAN 50 MG TAB PO SCH (08:07)
[2017-12-04] MEDS: CALCIUM CARBONATE 500 MG CHEWABLE TAB CHEW SCH (08:07)
[2017-12-04] MEDS: HYDROCHLOROTHIAZIDE 12.5 MG CAP PO SCH (08:07)
[2017-12-04] MEDS: ACETAMINOPHEN/HYDROcodone 325 MG/5 MG TAB PO PRN (08:07)
[2017-12-04] MEDS: THIAMINE HCL 100 MG TAB PO SCH (08:08)
[2017-12-04] MEDS: PANTOPRAZOLE SOD 40 MG DELAYED RELEASE TAB PO SCH (08:08)
[2017-12-04] MEDS: ALVIMOPAN 12 MG CAPSULE PO SCH (08:08)
--- NOTE | 2017-12-04 09:44 | HHI.PR ---
Subjective Subjective Notes Up to chair reading book Feeling better today; ready to go home Objective Vitals/I&O Vital Signs Date Time Temp Pulse Resp B/P (MAP) Pulse Ox O2 Delivery O2 Flow Rate FiO2 12/04/17 08:00 99.5 82 21 146/79 (101) 96 12/02/17 04:29 21 12/01/17 07:00 Room Air Labs Laboratory Tests Test 12/04/17 05:20 White Blood Count 9.3 Red Blood Count 3.24 Hemoglobin 9.4 Hematocrit 27.8 Mean Corpuscular Volume 85.7 Mean Corpuscular Hemoglobin 28.9 Mean Corpuscular Hemoglobin Concent 33.7 Red Cell Distribution Width 18.1 Platelet Count 220 Mean Platelet Volume 9.9 Neutrophils (%) (Auto) 61.5 Lymphocytes (%) (Auto) 17.7 Monocytes (%) (Auto) 17.8 Eosinophils (%) (Auto) 2.1 Basophils (%) (Auto) 0.9 Neutrophils # (Auto) 5.7 Lymphocytes # (Auto) 1.7 Monocytes # (Auto) 1.7 Eosinophils # (Auto) 0.2 Basophils # (Auto) 0.1 CBC Comment DIFF FINAL Differential Comment Blood Urea Nitrogen 6 Creatinine 0.67 Random Glucose 97 Total Protein 6.8 Albumin 3.0 Calcium Level 8.9 Alkaline Phosphatase 57 Aspartate Amino Transf (AST/SGOT) 29 Alanine Aminotransferase (ALT/SGPT) 31 Total Bilirubin 1.8 Sodium Level 135 Potassium Level 3.5 Chloride Level 98 Carbon Dioxide Level 30.1 Anion Gap 7 Estimat Glomerular Filtration Rate 122 Cardiovascular: Regular Lungs: Clear Abdomen: Other (midline incision with yunior; abdomen soft; non tender; bandage removed ) Extremities: No edema A/P Assessment and Plan 56 year old POD6 lap assisted takedown of splenic flexure of the colon; distal sigmoid colon resection with low anterior resection -Hmg remains stable -Tolerating regular diet -Pain controlled using oral pain mediations -No signs of bleeding -Okay to leave incision DOMINIQUE -GS clear for DC -Follow up SundayDec 10 at 3:40PM Attending Note - Dr. Victor Abdomen now benign Yunior intact without erythema Instructions/counseling given re: alcohol intake, activity level, pathology findings [id number]. Will need to follow up with medical oncology The exam, history, and the medical decision-making described in the above note were completed with the assistance of the mid-level provider. I reviewed and agree with the findings presented. I attest that I had a [id number] encounter with the patient on the same day, and personally performed and documented my assessment and findings in the medical record. Helena Melendez Dec 04, 2017 09:44 John Victor MD Dec 04, 2017 11:47
[2017-12-04] MEDS ORDERED: HYDR-3516 PO (09:45)
--- NOTE | 2017-12-04 12:30 | HHI.DS ---
Discharge Summary Admission Date Nov 27, 2017 at 15:50 Discharge Date: Dec 04, 2017 Admitting Diagnosis colon tumor (1) Colonic mass ICD Code: K63.9 - Disease of intestine, unspecified Diagnosis: Principal Status: Resolved (2) HTN (hypertension) ICD Code: I10 - Essential (primary) hypertension Diagnosis: Secondary Status: Chronic (3) Anemia ICD Code: D64.9 - Anemia, unspecified Diagnosis: Secondary Status: Acute Procedures Laparoscopic assisted takedown splenic flexure of the colon Sigmoid colon resection with low anterior resection Brief History - From Admission This is a pleasant 56 y/o Man with history of GI bleed found to have a rectal Cancer Stage III, recommended for surgery but as per patient he did not have the possibility to perform the surgery due to no Insurance, He knows the situation for one year but from July was recommended the procedure, today due to GI bleed and difficulty to eat consulted to Doctor Valente and was sent for procedure to this facility. was asked to ER physician to place the patient NPO, give GoLYTELY start IV fluids, laboratory reviewed and continue to follow, he states he is a heavy drinker of Beer and sometimes use Hard liquor, at this time stable, has rectal pain. CBC/BMP: 12/04/17 0520 12/04/17 0520 Significant Findings Laboratory Tests Test 12/02/17 04:13 12/03/17 07:11 12/04/17 05:20 Red Blood Count 3.09 MIL/MM3 (4.50-5.90) 3.10 MIL/MM3 (4.50-5.90) 3.24 MIL/MM3 (4.50-5.90) Hemoglobin 9.1 GM/DL (13.0-17.0) 9.2 GM/DL (13.0-17.0) 9.4 GM/DL (13.0-17.0) Hematocrit 26.3 % (39.0-51.0) 26.4 % (39.0-51.0) 27.8 % (39.0-51.0) Red Cell Distribution Width 17.7 % (11.6-17.2) 18.1 % (11.6-17.2) 18.1 % (11.6-17.2) Neutrophils (%) (Auto) 70.1 % (16.0-70.0) Monocytes (%) (Auto) 14.2 % (0.0-8.0) 18.8 % (0.0-8.0) 17.8 % (0.0-8.0) Monocytes # (Auto) 1.2 TH/MM3 (0-0.9) 1.4 TH/MM3 (0-0.9) 1.7 TH/MM3 (0-0.9) Blood Urea Nitrogen 4 MG/DL (7-18) 6 MG/DL (7-18) 6 MG/DL (7-18) Calcium Level 7.9 MG/DL (8.5-10.1) 8.4 MG/DL (8.5-10.1) Sodium Level 133 MEQ/L (136-145) 133 MEQ/L (136-145) 135 MEQ/L (136-145) Potassium Level 3.3 MEQ/L (3.5-5.1) 3.3 MEQ/L (3.5-5.1) Chloride Level 97 MEQ/L (98-107) Albumin 3.0 GM/DL (3.4-5.0) Total Bilirubin 1.8 MG/DL (0.2-1.0) PE at Discharge GENERAL: sitting on recliner HEAD: Normocephalic. EYES: No scleral icterus. No injection or drainage. NECK: trachea midline. CARDIOVASCULAR: Regular rate and rhythm without murmurs RESPIRATORY: Breath sounds equal bilaterally but decreased, no wheezing or use of accessory muscles GASTROINTESTINAL: Abdomen distended but softer, abdominal binder in place, dressing d/c/i. appropriately tender to palpation. MUSCULOSKELETAL: No edema. moves extremities Hospital Course Mr. Collins was admitted secondary to GI bleed and colon tumor was discovered. He had a colon resection with removal of the tumor. She has been recovering since. He reports some diarrhea but this is improving. Note electrolyte disturbance. No dehydration. Surgically cleared for discharge home today. Pain treatments provided. Medically patient is also clear for discharge to home today. Outpatient follow-up with surgery and oncology recommended. Cessation of alcohol abuse recommended. Pt Condition on Discharge: Stable Discharge Disposition: Discharge Home Discharge Time: <= 30 minutes Discharge Instructions DIET: Follow Instructions for: As Tolerated, No Restrictions Additional Diet Instructions: Decrease or preferably avoid alcohol use. Activities you can perform: Regular-No Restrictions Follow up Referrals: PCP Follow-up - 2 Weeks PCP Follow-up Surgical - 12/10/17 with John Victor MD Appt set for Dec 10 at 3:40PM Surgical New Medications: Hydrocodone/Acetaminophen (Hydrocodone-Acetamin 5-325 mg) 5 Mg-325 Mg Tablet 1 TAB PO Q4H PRN for pain, #25 TAB Dieter De La O MD Dec 04, 2017 12:30
--- NOTE | 2017-12-05 17:23 | MP ---
cc: BURKE CORREA DATE OF SURGERY: 11/28/2017 PREOPERATIVE DIAGNOSIS: 1. Lower GI bleed. 2. Colorectal cancer. POSTOPERATIVE DIAGNOSIS: 1. Lower GI bleed. 2. Colorectal cancer. OPERATION: Rigid proctoscopy. ATTENDING SURGEON: Dr. Correa. ANESTHESIA: General. COMPLICATIONS None FINDINGS Normal-appearing distal rectum with intact patent anastomosis after resection and reanastomosis. INDICATIONS FOR PROCEDURE The patient is a 56-year-old male who was admitted to [facility] for lower GI bleed. He has a known history of rectal sigmoid cancer that was previously diagnosed. This was due to the acute bleeding. The patient required urgent operation for resection of the lesion. Dr. Victor brought the patient to the operating room to perform a rectosigmoid type and low anterior type resection. My presence was requested and required for rigid proctoscopy for reanastomosis of the rectum to restore bowel continuity. Risks, benefits, alternative were discussed with the patient and consent was obtained. DESCRIPTION OF PROCEDURE: During the low anterior resection procedure, I performed a rigid proctoscopy. We then gently performed a rectal examination which was normal. We placed a rigid proctoscope through the anal canal into the rectum without difficulty. This was gently insufflated and there was some minimal mucous with no significant residual stool. No visible lesions in the rectum seen. The rectosigmoid junction had been resected for the low anterior resection. Stable line was intact. Once we had verified the anatomy, we turned our attention toward reconstruction. An EEA type anastomosis was performed through the rectum. Please see Dr. Victor's note for details on this portion of the procedure. At the conclusion of the anastomosis, a second rigid proctoscope was performed and was found to have an intact staple line, viable healthy tissue without bleeding and no evidence of any complications. This was patent as well. Air was expressed from the rectum and the proctoscope was retracted. Patient tolerated the proctoscopy portion of the procedure well. No apparent complications. I was present for the entire proctoscopy as above. Please see Dr. Victor's note for further details and the conclusion of the procedure. MD MIGUE Huizar/CANDIDO /2:03 PM /5:02 PM
== END 2017-12-04 12:22 | disposition home or self-care (01) | DRG 330 ==
LOC: HOR 10:17 → NEDA 15:50 → N04A 19:55 → N07B 11-28 11:02 → N03A 11-28 17:20 → N07B 12-01 17:01
PROVIDERS: ADMIT Hospitalist; ATTEND Hospitalist
PROC: 0DBP0ZZ Excision of Rectum, Open Approach (ICD-10-PCS; 2017-11-28)
PROC: 0DJD8ZZ Inspection of Lower Intestinal Tract, Via Natural or Artificial Opening Endoscopic (ICD-10-PCS; 2017-11-28)
PROC: 0DBN0ZZ Excision of Sigmoid Colon, Open Approach (ICD-10-PCS; principal; 2017-11-28 10:37)
PROC: 30233N1 Transfusion of Nonautologous Red Blood Cells into Peripheral Vein, Percutaneous Approach (ICD-10-PCS; 2017-11-29)
PROC: 30233R1 Transfusion of Nonautologous Platelets into Peripheral Vein, Percutaneous Approach (ICD-10-PCS; 2017-11-30)
DX: C18.7 Malignant neoplasm of sigmoid colon (principal); F10.231 Alcohol dependence with withdrawal delirium; K74.60 Unspecified cirrhosis of liver; K92.2 Gastrointestinal hemorrhage, unspecified; I10 Essential (primary) hypertension; R19.7 Diarrhea, unspecified; D64.9 Anemia, unspecified; E83.51 Hypocalcemia; M51.26 Other intervertebral disc displacement, lumbar region; Z91.19 Patient's noncompliance with other medical treatment and regimen
CPT/HCPCS: 36415; 36430; 74177; 80048; 80053; 81001; 83735; 84100; 85014; 85018; 85025; 85610; 86850; 86900; 86901; 86920; 88307; 88309; 88329; 88331; 93005; 94150; 99285; J0690; J1170; J1885; J1940; J2060; J2250; J2270; J2405; J3010; J3411; J3480; J7030; J7040; J7050; J7120; P9016; P9035; Q9963; Q9967

== ENCOUNTER 2018-04-18 05:27 | Emergency (ER) | payer SELFPAY ==
[~2018-04-18 05:27] MED LIST: HYDR-3516 PO; MICA80TA2 PO
[2018-04-18 05:29] VITALS: BP 128/67; PULSE 71; RESP 15; TEMP 97.6; O2SAT 99
--- NOTE | 2018-04-18 05:59 | PD ---
HPI Chief Complaint: Skin Problem Time Seen by Provider: 05:50 Travel History International Travel<30 days: No Contact w/Intl Traveler<30days: No Traveled to known affect area: No History of Present Illness HPI This is a 57-year-old male presents for evaluation of a rash. Symptom onset 2- 3 weeks ago. Reports intermittent painful/pruritic blisters on his hands and his left foot. Symptoms are moderate, aggravated by palpation of the lesions, no alleviating factors. He reports that he has been healing up needles and popping the blisters when they arise. He reports over the past several days he has developed increased pain and redness to the left foot and this is what prompted evaluation today. He denies any recent unusual exposures. He does not wear gloves. Denies any new medications, creams, lotions, detergents, clothing, change in living environment. Denies sore throat, denies fevers or chills. He has no other complaints at this time. PFSH Past Medical History Cancer: Yes (COLON CANCER, NEVER TREATED) Cardiovascular Problems: Yes (HTN) Chemotherapy: No Endocrine: No Gastrointestinal Disorders: Yes (colon cancer) Genitourinary: No Hypertension: Yes Immune Disorder: No Musculoskeletal: Yes Neurologic: No Psychiatric: No Reproductive: No Respiratory: No Radiation Therapy: No Past Surgical History Abdominal Surgery: Yes (exp abd surgery) Cardiac Surgery: No Thoracic Surgery: No Social History Alcohol Use: Yes (8 drinks daily beer/liquor ) Tobacco Use: No Substance Use: No Allergies-Medications (Allergen,Severity, Reaction): Coded Allergies: No Known Allergies (Unverified , 04/18/18) Reported Meds & Prescriptions Reported Meds & Active Scripts Active Keflex (Cephalexin) 500 Mg Cap 500 Mg PO Q8H Bactrim DS (Sulfamethoxazole-Trimethoprim) 800-160 Mg Tab 1 Tab PO BID Reported Micardis Hct (Telmisartan-Hydrochlorothiazide) 80-12.5 Mg Tab 1 Tab PO DAILY Review of Systems Except as stated in HPI: all other systems reviewed are Neg Physical Exam Narrative GENERAL: Well-developed well-nourished male no acute distress SKIN: Warm and dry. Examination reveals approximately 5 ecchymotic blisters on the dorsum of the left foot/toes. There is some surrounding erythema. There are a few excoriated lesions on the left hand and fingers as well. No palm of hand or sole of foot involvement. HEAD: Atraumatic. Normocephalic. EYES: Pupils equal and round. No scleral icterus. No injection or drainage. ENT: No nasal bleeding or discharge. Mucous membranes pink and moist. No intraoral lesions. NECK: Trachea midline. No JVD. CARDIOVASCULAR: Regular rate and rhythm. No murmur appreciated. RESPIRATORY: No accessory muscle use. Clear to auscultation. Breath sounds equal bilaterally. GASTROINTESTINAL: Abdomen soft, non-tender, nondistended. Hepatic and splenic margins not palpable. MUSCULOSKELETAL: No obvious deformities. Skin as noted above. NEUROLOGICAL: Awake and alert. No obvious cranial nerve deficits. Motor grossly within normal limits. Normal speech. Data Data Last Documented VS Vital Signs Date Time Temp Pulse Resp B/P (MAP) Pulse Ox O2 Delivery O2 Flow Rate FiO2 04/18/18 05:29 97.6 71 15 128/67 (87) 99 Orders Orders Sulfamet-Trimeth Ds 800-160 Mg (Bactrim (04/18/18 06:00) Cephalexin (Keflex) (04/18/18 06:00) Ed Discharge Order (04/18/18 05:50) Wound Culture And Gram Stain (04/18/18 05:50) MDM Medical Decision Making Medical Screen Exam Complete: Yes Emergency Medical Condition: Yes Medical Record Reviewed: Yes Differential Diagnosis Dyshidrotic eczema, coxsackievirus, erythema multiforme, bullous pemphigoid, allergic contact dermatitis, friction blisters, Pollack-Black syndrome Narrative Course 57-year-old male presents with pruritic and painful blister lesions on the hands and feet intermittently over the past few weeks. On current examination he has 4-5 blisters on the left foot and 2 excoriated blisters on the left hand. He has cellulitis on the left foot likely secondary to intentionally popping the blisters. A wound culture will be obtained. Etiology of the blisters is unknown. At this point time the plan will be to have him follow-up with a plant breeder for possible biopsy. Recommended Benadryl for itching. He is stable for discharge. He will be started on Bactrim and Keflex for cellulitis. Diagnosis Primary Impression: Cellulitis of left foot Additional Impression: Blisters of multiple sites Referrals: [facility]ing [employer]ic Additional Instructions: Medication as prescribed. Avoid popping the blisters intentionally. Take Benadryl every 6 hours as needed for itching. Do not drive or drink alcohol and taking Benadryl. Follow-up with a plant breeder for further evaluation and treatment. Return for any emergent medical conditions. Med/Other Pt SpecificInfo: Prescription(s) given Scripts Cephalexin (Keflex) 500 Mg Cap 500 MG PO Q8H for Infection, #30 CAP 0 Refills Prov: Renan Tinajero MD 04/18/18 Sulfamethoxazole-Trimethoprim (Bactrim DS) 800-160 Mg Tab 1 TAB PO BID for Infection, #20 TAB 0 Refills Prov: Renan Tinajero MD 04/18/18 Disposition: 01 DISCHARGE HOME Condition: Stable Jl [place]vall Apr 18, 2018 05:59
[2018-04-18] MEDS ORDERED: SULFAMETHOXAZOLE-TRIMETHOPRIM DS 800-160 MG TAB PO ONE (06:00)
[2018-04-18] MEDS ORDERED: CEPHALEXIN MONOHYDRATE 500 MG CAP PO ONE (06:00)
[2018-04-18] MEDS ORDERED: CEPH-460 PO (06:00)
[2018-04-18] MEDS ORDERED: BACT800T5 PO (06:00)
== END 2018-04-18 06:27 | disposition home or self-care (01) ==
LOC: NEPD 05:27
DX: L03.116 Cellulitis of left lower limb (principal); S90.822A Blister (nonthermal), left foot, initial encounter; S60.522A Blister (nonthermal) of left hand, initial encounter; I10 Essential (primary) hypertension; Z85.038 Personal history of other malignant neoplasm of large intestine; X58.XXXA Exposure to other specified factors, initial encounter
CPT/HCPCS: 99283